=== PATIENT | female | born 1985 | race Caucasian/White ===

== ENCOUNTER 2021-05-26 18:59 | Emergency (ER) | payer OTHER, SELFPAY ==
--- NOTE | 2021-05-26 19:07 | ED.SKABFB ---
HPI - Skin/Abscess/Foreign Bdy General Chief complaint: Skin/Abscess/Foreign Body Stated complaint: Bite on stomach Time Seen by Provider: 05/26/21 19:07 Source: patient and RN notes reviewed History of Present Illness HPI narrative: Patient is a 35-year-old female who presents the urgent care with complaints of an insect bite to the abdomen. Patient states she noticed it on Sunday and it seems to have gotten larger and redness and tingling. Patient states that she has put pressure to the area and has tried covering it with a bandage. Denies of any fever, chills, nausea, vomiting. No other acute complaints. No acute distress noted. Patient aware of the plan of care. Some parts of this dictation were generated by voice recognition software and may contain typographical and/or grammatical inaccuracies. Related Data Allergies Allergy/AdvReac Type Severity Reaction Status Date / Time No Known Allergies Allergy Verified 05/26/21 19:12 Review of Systems Review of Systems: Narrative: CONSTITUTIONAL: Denies fever, chills, or sweats. EYES: Denies visual changes, redness, or discharge. ENT: Denies rhinorrhea, congestion, sore throat, or otalgia. CARDIOVASCULAR: Denies chest pain, palpitations, or edema. RESPIRATORY: Denies cough or dyspnea. GASTROINTESTINAL: Denies abdominal pain, nausea, vomiting, or diarrhea. GENITOURINARY: Denies dysuria or hematuria. SKIN: Reports of an insect bite with surrounding redness to the abdomen MUSCULOSKELETAL: Denies back pain, joint pain, or myalgia. NEUROLOGIC: Denies headache, numbness, or weakness. All other systems reviewed are negative, except as documented in HPI. PMFSH Comments At the time of my signature, I reviewed and agree with the nursing past medical, surgical, social, and family history. There is no relevant family history pertinent to the patient complaint. Exam Narrative: Exam Narrative: GENERAL: This is a well-nourished, well-developed patient, in no apparent distress. HEAD: normocephalic, atraumatic. EYES: PERRL. Sclera clear/white. Vision is grossly intact. EARS: External ears normal NOSE: External nose normal with no obvious nasal discharge, nares without redness, no rhinorrhea. THROAT: Mucous membranes moist NECK: Neck supple CARDIOVASCULAR: Regular rate and rhythm without murmurs, gallops, or rubs. RESPIRATORY: Clear to auscultation. Breath sounds equal bilaterally. No wheezes, rales, or rhonchi. SKIN: 7 x 8 inch region of erythema surrounding a 0.5 cm insect bite to the right abdomen NEURO: awake, alert, and oriented to person, place and time. There were no obvious focal neurologic abnormalities. EXTREMITIES: No clubbing, cyanosis, or edema. N Course Vital Signs Vital signs: Vital Signs Temperature 98.9 F 05/26/21 19:10 Pulse Rate 103 H 05/26/21 19:10 Respiratory Rate 18 05/26/21 19:10 Blood Pressure 139/71 05/26/21 19:10 Pulse Oximetry 98 05/26/21 19:10 Temperature 98.9 F 05/26/21 19:10 Pulse Rate 103 H 05/26/21 19:10 Respiratory Rate 18 05/26/21 19:10 Blood Pressure 139/71 05/26/21 19:10 Pulse Oximetry 98 05/26/21 19:10 Reviewed MDM - Skin/Abscess/Foreign Bdy MDM Narrative Medical decision making narrative: Advised the patient to complete oral antibiotic regimen as prescribed. Be sure to eat and drink with the medication. Use prescription cream to the affected area twice a day as directed. Use a cool washcloth to the abdomen for comfort. Use Tylenol/ibuprofen as needed. Outline the area of redness and if you have an increase in redness associated with fever, nausea, vomiting?go to the emergency room. Keep the wound open to air if it not risk of being soiled and when you are at home. May cover the insect bite while working with a nonocclusive bandage. Follow-up with your PCP within 2 to 5 days or for worsening symptoms or failure to improve. Differential Diagnosis Differential diagnosis: Likely abscess of skin or subcutaneous tissu
[2021-05-26 19:10] VITALS: BP 139/71; PULSE 103; RESP 18; TEMP 37.2; O2SAT 98
== END 2021-05-26 19:30 | disposition home or self-care (01) ==
PROVIDERS: Emergency Provider Nurse Practitioner Family
DX: L03.311 Cellulitis of abdominal wall (principal)
CPT/HCPCS: 99213; G0463

== ENCOUNTER 2022-05-22 11:41 | Emergency (ER) | payer OTHER, SELFPAY ==
--- NOTE | 2022-05-22 11:45 | ED.DENTAL ---
HPI - Dental/Oral General Chief complaint: Dental/Oral Stated complaint: Mouth Swollen Time Seen by Provider: 05/22/22 11:52 Source: patient Mode of arrival: ambulatory Limitations: no limitations History of Present Illness HPI Narrative: 36-year-old female presents with concern for dental pain. Reports she has had a chipped tooth, tooth #9 for quite some time, she reports recently tooth #10 has chipped.. She reports the pain is above tooth #9, below her nose. She reports she has been trying to get into a dentist without luck. She denies trouble swallowing, trouble breathing, fever. MD Complaint: tooth pain Related Data Allergies Allergy/AdvReac Type Severity Reaction Status Date / Time No Known Allergies Allergy Verified 05/26/21 19:12 Review of Systems Review of Systems: CONSTITUTIONAL: Denies malaise, chills, sweats, or fever. EYES: Denies visual changes ENT: Denies rhinorrhea, congestion, sinus pain, otalgia or sore throat. Reports mid frontal dental pain CARDIOVASCULAR: Denies chest pain, palpitations RESPIRATORY: Denies cough or dyspnea. SKIN: Denies rash or itching. MUSCULOSKELETAL: Denies myalgia. NEUROLOGIC: Denies numbness, weakness, or headache. All systems reviewed & are unremarkable except as noted in HPI and below PMFSH Comments At time of signature, agree with nursing past medical, surgical, social and family history. There is no relevant family history pertinent to the presenting complaint Exam Narrative: GENERAL: Well-appearing, well-nourished, and in no acute distress. HEAD: Normocephalic, atraumatic. EYES: PERRLA, sclera clear ENT: Nares clear, turbinates pink, no rhinorrhea or epistaxis. Mucous membranes moist. TM pearly wilkerson with sharp light reflex bilaterally; no tragal tenderness. Oropharynx without erythema or lesions. Tonsils not enlarged and without exudate. Missing teeth, broken teeth, caries. No periapical abscess noted, teeth 7 through 10 broken with caries NECK: Supple. No lymphadenopathy. CHEST: No respiratory distress. Speaks in full sentences. HEART: Regular rate and rhythm. SKIN: Warm, dry, no visible rash. NEURO: Alert and oriented x3. PSYCH: Normal mood and affect Course Course Emergency Course: Patient is aware of diagnosis, understands and agrees to treatment plan. Anticipatory guidance given. Patient agrees to follow-up as directed and is aware of reasons to seek care at the emergency department. Portions of this record may have been created with voice recognition software Level of Care: Express Care Visit Vital Signs Vital signs: Reviewed. MDM - Dental/Oral MDM Narrative Medical decision making narrative: Patients pain and complaint coupled with physical findings are consistant with dentalgia. There are no focal signs of space occupying lesions that are compromising to the airway; no dysphagia, odynophagia, dysphonia, or dyspnea. No uvular deviation or soft palate edema. Patient is non-toxic appearing. The floor of the mouth is soft with no signs of Luis Antonio's Angina; no induration below mandible, no neck pain. Patient is without trismus or drooling and able to swallow secretions. Patient is felt appropriate for discharge home with dental follow up. Differential Diagnosis Differential diagnosis: Likely gingival abscess, dental caries, toothache, dental abscess, fracture of tooth and aphthous ulcer Critical Care Time Critical Care Time Critical Care Time: No Discharge Plan Discharge Clinical Impression: Pain, dental Patient Disposition: Home, Self-Care Condition: Stable Instructions: Antibiotic Form, Toothache (ED) Additional Instructions: Take antibiotic as directed Avoid temperature extremes May apply heat or ice to the face Gentle brushing and flossing Alternate Tylenol and ibuprofen as needed for pain Follow-up with the dentist as soon as possible--see the list provided Prescriptions: New ibuprofen 800 mg tablet 800 mg
[2022-05-22 11:54] VITALS: BP 142/72; PULSE 88; RESP 16; TEMP 37.5; O2SAT 99
== END 2022-05-22 12:04 | disposition home or self-care (01) ==
PROVIDERS: Emergency Provider Nurse Practitioner
DX: K08.89 Other specified disorders of teeth and supporting structures (principal)
CPT/HCPCS: 99213; G0463

== ENCOUNTER 2022-06-21 18:55 | Emergency (ER) | payer OTHER, SELFPAY ==
[2022-06-21 19:03] VITALS: BP 148/75; PULSE 75; RESP 16; TEMP 37; O2SAT 100
--- NOTE | 2022-06-21 19:31 | ED.DENTAL ---
HPI - Dental/Oral General Chief complaint: Dental/Oral Stated complaint: tooth pain Time Seen by Provider: 06/21/22 19:31 Source: patient Mode of arrival: ambulatory History of Present Illness HPI Narrative: 37 y/o female presented for c/o front upper dental pain worsening since yesterday. She was seen and treated for the same complaint in May, symptoms improved, has not seen dentist yet. Reports multiple chipped teeth. Denies drainage, fever, reports minimal swelling. Has not taken anything for pain. MD Complaint: tooth pain Related Data Allergies Allergy/AdvReac Type Severity Reaction Status Date / Time No Known Allergies Allergy Verified 06/21/22 19:32 Review of Systems Review of Systems: CONSTITUTIONAL: Denies body aches, fever, chills ENT: Denies rhinorrhea, congestion, sore throat, or otalgia. Reports dental pain CARDIOVASCULAR: Denies chest pain, palpitations RESPIRATORY: Denies cough or dyspnea. SKIN: Denies rash, itching, or wounds. MUSCULOSKELETAL: Denies myalgia. NEUROLOGIC: Denies headache, numbness, tingling, or weakness. PMFSH Comments At time of signature, I have reviewed and agree with nursing past medical, surgical, social and family history unless otherwise noted. Please see nursing chart for further information. There is no relevant family history pertinent to the presenting complaint Exam Narrative: GENERAL: well-appearing; no acute distress. HEAD: Normocephalic, atraumatic. EYES: EOMI. No redness or drainage. Conjunctivae normal. ENT: Dental pain location of #8-9, teeth are decayed and broken, minimal gum swelling no active drainage; multiple broken teeth, missing teeth. Mucous membranes pink and moist. TMs normal bilaterally. NECK: Normal AROM. No lymphadenopathy or swelling. CHEST: Clear to auscultation. HEART: Regular rate and rhythm. No murmur appreciated. SKIN: Warm, dry, no rash. Normal skin turgor. NEURO: No focal deficits. Alert and oriented x3. Gait steady. Course Course Emergency Course: Patient is aware of diagnosis, understands and agrees to treatment plan. Anticipatory guidance given. Patient agrees to follow-up as directed and is aware of reasons to seek care at the emergency department. Portions of this record may have been created with voice recognition software Level of Care: Express Care Visit Vital Signs Vital signs: Vital Signs Temperature 98.6 F 06/21/22 19:03 Pulse Rate 75 06/21/22 19:03 Respiratory Rate 16 06/21/22 19:03 Blood Pressure 148/75 H 06/21/22 19:03 Pulse Oximetry 100 06/21/22 19:03 Oxygen Delivery Room Air 06/21/22 19:03 Temperature 98.6 F 06/21/22 19:03 Pulse Rate 75 06/21/22 19:03 Respiratory Rate 16 06/21/22 19:03 Blood Pressure 148/75 H 06/21/22 19:03 Pulse Oximetry 100 06/21/22 19:03 Oxygen Delivery Room Air 06/21/22 19:03 MDM - Dental/Oral MDM Narrative Medical decision making narrative: Patients pain and complaint coupled with physical findings are consistent with dentalgia. There are no focal signs of space occupying lesions that are compromising to the airway. Patient is non-toxic appearing. Patient is without trismus or drooling and able to swallow secretions. Advised supportive measures, Patient is appropriate for discharge home with dental follow up. Differential Diagnosis Differential diagnosis: Likely gingival abscess, dental caries, toothache, dental abscess, fracture of tooth and aphthous ulcer Discharge Plan Discharge Clinical Impression: Dentalgia Patient Disposition: Home, Self-Care Condition: Stable Instructions: Antibiotic Form, Toothache (ED) Additional Instructions: Take antibiotic as directed May apply heat or ice to the face Gentle brushing and flossing. Rinse mouth with warm salt water at least 2 times a day. Over the counter Orajel as directed Alternate Tylenol 1000mg and ibuprofen 800mg every 8 hours as needed for pain Follow-up with the denti
== END 2022-06-21 19:50 | disposition home or self-care (01) ==
PROVIDERS: Emergency Provider Nurse Practitioner Family; PCP Nurse Practitioner Family
DX: K08.89 Other specified disorders of teeth and supporting structures (principal)
CPT/HCPCS: 99213; G0463

== ENCOUNTER 2022-07-21 12:37 | Emergency (ER) | payer OTHER, SELFPAY ==
[2022-07-21 12:48] VITALS: BP 135/85; PULSE 65; RESP 18; TEMP 36.9; O2SAT 100
--- NOTE | 2022-07-21 12:52 | ED.EYEPROB ---
HPI - Eye Problem General Chief complaint: Eye Problems Stated complaint: left eye swollen Time Seen by Provider: 07/21/22 12:50 Source: patient Mode of arrival: ambulatory Limitations: no limitations History of Present Illness HPI Narrative: Ms. Brantley is a 37-year-old female patient presenting to the clinic today with complaints of left eye swelling and itching. She also reports having some watery discharge coming from the left eye. States the symptoms started last night. Reports that she is around some dust and may have gotten some dust in her eye. She denies any visual changes or eye pain Related Data Allergies Allergy/AdvReac Type Severity Reaction Status Date / Time No Known Allergies Allergy Verified 07/21/22 12:51 Review of Systems Review of Systems: Pertinent positives per HPI. Patient denies any fever, chills, rash, headache, visual changes, dizziness, cough, runny nose, sore throat, shortness of breath, chest pain, palpitations, nausea, vomiting, diarrhea, constipation, abdominal pain, or any urinary issues. PMFSH Comments At the time of my signature, I reviewed and agree with the nursing past medical, surgical, social, and family history. There is no relevant family history pertinent to the patient complaint. Exam Narrative: General: Well-developed, well nourished, in no apparent distress Head: Normocephalic, atraumatic Eyes: Pupils equally round and reactive to light bilaterally, EOM intact, right sclera and conjunctive clear, left sclera and conjunctive a injected, with watery discharge, right lids normal, left eyelids swollen and nontender Ears: TMs intact and clear, ear canals clear, no drainage, grossly hearing normal. Nose: Nares patent, no discharge, no inflammation, no sinus tenderness. Mouth: Oropharynx without lesions or masses, good dentition, MMM. Neck: Supple, trachea midline, no enlargement of anterior or posterior cervical nodes, no thyroid masses or goiter palpable. Cardio: Regular rate and rhythm, s1 and s2 normal, no murmur appreciated. Resp: Clear to auscultation bilaterally anteriorly and posteriorly, no rhonchi, rales, wheezing or rubs Course Course Emergency Course: Portions of this record may have been created with voice recognition software. Level of Care: Express Care Visit Vital Signs Vital signs: Vital Signs Temperature 36.9 C 07/21/22 12:48 Pulse Rate 65 07/21/22 12:48 Respiratory Rate 18 07/21/22 12:48 Blood Pressure 135/85 07/21/22 12:48 Pulse Oximetry 100 07/21/22 12:48 Oxygen Delivery Room Air 07/21/22 12:48 Temperature 36.9 C 07/21/22 12:48 Pulse Rate 65 07/21/22 12:48 Respiratory Rate 18 07/21/22 12:48 Blood Pressure 135/85 07/21/22 12:48 Pulse Oximetry 100 07/21/22 12:48 Oxygen Delivery Room Air 07/21/22 12:48 Vital signs reviewed MDM - Eye Problem MDM Narrative Medical decision making narrative: At the time of visit patient is resting comfortably on the exam table. She denies any pain in her lifetime. I suspect that she may have an allergic irritation/conjunctivitis to the left eye. I will give her a prescription for some TobraDex to cover a secondary eye infection. Supportive measures were discussed with the patient she voiced understanding and agrees with the treatment plan Differential Diagnosis Differential diagnosis: Likely corneal abrasion, conjunctivitis, periorbital cellulitis, subconjunctival hemorrhage, corneal ulcer and ruptured globe Discharge Plan Discharge Clinical Impression: Acute allergic conjunctivitis of left eye Patient Disposition: Home, Self-Care Condition: Stable Instructions: Antibiotic Form, Conjunctivitis (ED) Additional Instructions: May apply cool compresses to the affected area May take Benadryl 25 to 50 mg every 6 hours as needed for itching/swelling Apply TobraDex eyedrops in the eye as directed May take Tylenol/Motrin as needed for any pain or fever Fol
== END 2022-07-21 12:56 | disposition home or self-care (01) ==
PROVIDERS: Emergency Provider Nurse Practitioner Family; PCP Nurse Practitioner Family
DX: H10.12 Acute atopic conjunctivitis, left eye (principal)
CPT/HCPCS: 99213; G0463

== ENCOUNTER 2023-02-04 16:58 | Emergency (ER) | payer OTHER, SELFPAY ==
[2023-02-04 17:09] VITALS: BP 182/92; PULSE 95; RESP 16; TEMP 36.9; O2SAT 98
--- NOTE | 2023-02-04 17:20 | ED.GENADULT ---
HPI - General Adult General Chief complaint: Upper Respiratory Infection Stated complaint: Congestion/Eye Problem Source: patient Mode of arrival: ambulatory Limitations: no limitations History of Present Illness HPI narrative: Patient presents for evaluation of itching to both eyes and nose. Symptom onset today. She had similar symptoms 6 days ago. She took Claritin and had mild improvement in her symptoms. No fever, chills nausea, vomiting, sore throat, otalgia, thick drainage from the nares, visual disturbance, drainage from the eyes. She has a known history of environmental allergies. No recent sick contacts to her knowledge. She is a former smoker. Related Data Home Medications Medication Instructions Recorded Confirmed norethindrone 1 mg-ethinyl 1 tablet PO DAILY 02/04/23 02/04/23 estradiol 20 mcg (24)-iron 75 mg (4) tablet (Erlinda 24 Fe) Allergies Allergy/AdvReac Type Severity Reaction Status Date / Time No Known Allergies Allergy Verified 02/04/23 17:16 Review of Systems Review of Systems: CONSTITUTIONAL: Denies fever, chills, or sweats. EYES: Reports itching to both eyes. Denies visual changes, redness, or discharge. ENT: Reports itching to the nose with clear rhinorrhea. Denies congestion, sore throat, or otalgia. CARDIOVASCULAR: Denies chest pain, palpitations, or edema. RESPIRATORY: Denies cough or dyspnea. GASTROINTESTINAL: Denies abdominal pain, nausea, vomiting, or diarrhea. GENITOURINARY: Denies dysuria or hematuria. SKIN: Denies rash or itching. MUSCULOSKELETAL: Denies back pain, joint pain, or myalgia. NEUROLOGIC: Denies headache, numbness, dizziness, or weakness. PSYCHIATRIC: Denies anxiety or depression. [facility] Past Medical History Medical History Environmental allergies Surgical History Surgical History No pertinent past surgical history Family History Family History Mother Family history non-contributory Social History Social History Smoking status: Former smoker Substance use: never Living arrangements: with family Gender identity (if verbalized by the patient): Female Sexual Orientation (if Verbalized by the Patient): Straight or Heterosexual Spiritual care concerns: No Exam Narrative: GENERAL: Well-appearing, well-nourished, and in no acute distress. HEAD: Normocephalic, atraumatic. EYES: PERRLA and EOMI. ENT: Clear rhinorrhea present. Mucous membranes moist. Oropharynx without tonsillar hypertrophy exudate or other lesions. Bilateral TMs pearly wilkerson nonbulging NECK: Supple. No adenopathy or masses. No carotid bruits or JVD CHEST: Clear to auscultation. No respiratory distress. No wheezes rales or rhonchi HEART: Regular rate and rhythm. No murmur heard. Normal peripheral pulses. ABDOMEN: Soft, nontender, nondistended, normal active bowel sounds. EXTREMITIES: Normal range of motion. No edema. SKIN: Warm, dry, no rash. NEURO: No focal deficits. Alert and oriented x3. PSYCH: Normal mood and affect. Course Course Emergency Course: This is a 37-year-old female who presented for evaluation of itching to both eyes and nose. Exam is consistent with allergic rhinitis. Will treat with montelukast. Follow up with primary provider. Patient in agreement plan of care. Level of Care: Express Care Visit Vital Signs Vital signs: Vital Signs Temperature 36.9 C 02/04/23 17:09 Pulse Rate 95 02/04/23 17:09 Respiratory Rate 16 02/04/23 17:09 Blood Pressure 182/92 H 02/04/23 17:09 Pulse Oximetry 98 02/04/23 17:09 Oxygen Delivery Room Air 02/04/23 17:09 Temperature 36.9 C 02/04/23 17:09 Pulse Rate 95 02/04/23 17:09 Respiratory Rate 16 02/04/23 17:09 Blood Pressure 182/92 H 02/04/23 17:0
== END 2023-02-04 17:20 | disposition home or self-care (01) ==
PROVIDERS: Emergency Provider Nurse Practitioner; PCP Nurse Practitioner Family
DX: J30.9 Allergic rhinitis, unspecified (principal)
CPT/HCPCS: 99213; G0463

== ENCOUNTER 2023-06-11 17:22 | Emergency (ER) | payer OTHER, SELFPAY ==
[2023-06-11 17:35] VITALS: BP 136/79; PULSE 80; RESP 16; TEMP 36.8; O2SAT 97
--- NOTE | 2023-06-11 17:50 | ED.URI ---
HPI - URI/Sore Throat General Chief Complaint: Upper Respiratory Infection Stated Complaint: Right Eye Problem Time Seen by Provider: 06/11/23 17:50 Source: patient Mode of arrival: ambulatory Limitations: no limitations History of Present Illness HPI Narrative: 38-year-old female presents with complaint of right eye redness, itching, drainage starting today. Reports sinus pressure, congestion, nasal congestion, postnasal drainage for 1 month. Taking Claritin and Zyrtec without relief of her symptoms. Afebrile. All systems reviewed and negative except as noted above. Related Data Home Medications Medication Instructions Recorded Confirmed norethindrone 1 mg-ethinyl 1 tablet PO DAILY 02/04/23 02/04/23 estradiol 20 mcg (24)-iron 75 mg (4) tablet (Erlinda 24 Fe) lisinopril 10 tablet 06/11/23 mg-hydrochlorothiazide 12.5 mg tablet Allergies Allergy/AdvReac Type Severity Reaction Status Date / Time No Known Allergies Allergy Verified 02/04/23 17:16 Review of Systems Review of Systems: CONSTITUTIONAL: Denies fever, chills, or sweats. EYES: Denies visual changes reports right eye redness, itching, discharge. ENT: Reports rhinorrhea, congestion, sinus pressure. Denies sore throat, or otalgia. CARDIOVASCULAR: Denies chest pain, palpitations, or edema. RESPIRATORY: Denies cough or dyspnea. GASTROINTESTINAL: Denies abdominal pain, nausea, vomiting, or diarrhea. GENITOURINARY: Denies dysuria or hematuria. SKIN: Denies rash or itching. MUSCULOSKELETAL: Denies back pain, joint pain, or myalgia. NEUROLOGIC: Denies headache, numbness, or weakness. PSYCHIATRIC: Denies anxiety or depression. All other systems reviewed are negative, except as documented in HPI. [facility] Past Medical History Medical History (Updated 06/11/23 @ 17:56 by Kamille Connell NP) Environmental allergies Surgical History Surgical History No pertinent past surgical history Family History Family History Mother Family history non-contributory Social History Social History Smoking status: Former smoker Substance use: never Living arrangements: with family Gender identity (if verbalized by the patient): Female Sexual Orientation (if Verbalized by the Patient): Straight or Heterosexual Spiritual care concerns: No Comments At time of signature, agree with nursing past medical, surgical, social and family history. There is no relevant family history pertinent to the presenting complaint. Exam Narrative: GENERAL: This is a well-nourished, well-developed patient, in no apparent distress. HEAD: normocephalic, atraumatic. EYES: PERRL. Erythema to right sclera and conjunctiva. Purulence drainage. Vision is grossly intact. EARS: External ears normal, auditory canals clear and without drainage, opaque color to bilateral TMs with dull light reflex. No perforation bilaterally. NOSE: External nose normal with purulence nasal drainage with erythema and swelling to bilateral nares. Bilateral maxillary and frontal sinus tenderness. THROAT: Mucous membranes moist, erythema and swelling to posterior pharynx with postnasal drainage. NECK: Neck supple, non-tender without lymphadenopathy, masses or thyromegaly. CARDIOVASCULAR: Regular rate and rhythm without murmurs, gallops, or rubs. RESPIRATORY: Clear to auscultation. Breath sounds equal bilaterally. No wheezes, rales, or rhonchi. SKIN: warm, Dry, intact with no suspicious lesions or rash, good texture and turgor. NEURO: awake, alert, and oriented to person, place and time. There were no obvious focal neurologic abnormalities. EXTREMITIES: No joint tenderness, effusion, or edema noted. Course Course Level of Care: Express Care Visit Vital Signs Vital signs: Vital Signs Temperature 3
== END 2023-06-11 18:03 | disposition home or self-care (01) ==
PROVIDERS: Emergency Provider Nurse Practitioner Family; PCP Nurse Practitioner Family
DX: J01.90 Acute sinusitis, unspecified (principal); H10.31 Unspecified acute conjunctivitis, right eye; Z87.891 Personal history of nicotine dependence
CPT/HCPCS: 99213; G0463

== ENCOUNTER 2023-07-09 12:29 | Emergency (ER) | payer OTHER, SELFPAY ==
[2023-07-09 12:39] VITALS: BP 137/78; PULSE 98; RESP 18; TEMP 37.3; O2SAT 98
--- NOTE | 2023-07-09 13:05 | ED.URI ---
HPI - URI/Sore Throat General Chief Complaint: Upper Respiratory Infection Stated Complaint: Bodyache/Congestion/Sore Throat Time Seen by Provider: 07/09/23 13:05 Source: patient Mode of arrival: ambulatory Limitations: no limitations History of Present Illness HPI Narrative: 38-year-old female presents with complaint of sinus congestion, postnasal drainage, sore throat starting last night. Patient states she started Zyrtec this morning and no change the symptoms. Afebrile. Patient was on antibiotic June 12 for sinusitis. States that all symptoms had resolved. All systems reviewed and negative except as noted above. Related Data Home Medications Medication Instructions Recorded Confirmed norethindrone 1 mg-ethinyl 1 tablet PO DAILY 02/04/23 07/09/23 estradiol 20 mcg (24)-iron 75 mg (4) tablet (Erlinda 24 Fe) Allergies Allergy/AdvReac Type Severity Reaction Status Date / Time No Known Allergies Allergy Verified 07/09/23 13:03 Review of Systems Review of Systems: CONSTITUTIONAL: Denies fever, chills, or sweats. EYES: Denies visual changes, redness, or discharge. ENT: Reports rhinorrhea, congestion, sore throat. Denies otalgia. CARDIOVASCULAR: Denies chest pain, palpitations, or edema. RESPIRATORY: Denies cough or dyspnea. GASTROINTESTINAL: Denies abdominal pain, nausea, vomiting, or diarrhea. GENITOURINARY: Denies dysuria or hematuria. SKIN: Denies rash or itching. MUSCULOSKELETAL: Denies back pain, joint pain, or myalgia. NEUROLOGIC: Denies headache, numbness, or weakness. PSYCHIATRIC: Denies anxiety or depression. All other systems reviewed are negative, except as documented in HPI. [facility] Past Medical History Medical History (Updated 07/09/23 @ 13:15 by Kamille Connell NP) Environmental allergies Surgical History Surgical History No pertinent past surgical history Family History Family History Mother Family history non-contributory Social History Social History Smoking status: Former smoker Substance use: never Living arrangements: with family Gender identity (if verbalized by the patient): Female Sexual Orientation (if Verbalized by the Patient): Straight or Heterosexual Spiritual care concerns: No Comments At time of signature, agree with nursing past medical, surgical, social and family history. There is no relevant family history pertinent to the presenting complaint. Exam Narrative: GENERAL: This is a well-nourished, well-developed patient, in no apparent distress. HEAD: normocephalic, atraumatic. EYES: PERRL. Sclera clear/white. Vision is grossly intact. EARS: External ears normal, auditory canals clear and without drainage, TMs normal without perforation. Hearing grossly intact. NOSE: External nose normal with moderate congestion, clear nasal drainage, nares without redness or swelling. THROAT: Mucous membranes moist, clear postnasal drainage without erythema.. NECK: Neck supple, non-tender without lymphadenopathy, masses or thyromegaly. CARDIOVASCULAR: Regular rate and rhythm without murmurs, gallops, or rubs. RESPIRATORY: Clear to auscultation. Breath sounds equal bilaterally. No wheezes, rales, or rhonchi. SKIN: warm, Dry, intact with no suspicious lesions or rash, good texture and turgor. NEURO: awake, alert, and oriented to person, place and time. There were no obvious focal neurologic abnormalities. EXTREMITIES: No joint tenderness, effusion, or edema noted. Course Course Level of Care: Express Care Visit Vital Signs Vital signs: Vital Signs Temperature 37.3 C 07/09/23 12:39 Pulse Rate 98 07/09/23 12:39 Respiratory Rate 18 07/09/23 12:39 Blood Pressure 137/78 07/09/23 12:39 Pulse Oximetry 98 07/09/23 12:39 Oxygen Delivery Room Air
== END 2023-07-09 13:19 | disposition home or self-care (01) ==
PROVIDERS: Emergency Provider Nurse Practitioner Family; PCP Nurse Practitioner Family
DX: J01.90 Acute sinusitis, unspecified (principal); Z87.891 Personal history of nicotine dependence
CPT/HCPCS: 87081; 87880; 99213; G0463

== ENCOUNTER 2023-07-24 18:55 | Emergency (ER) | payer OTHER, SELFPAY ==
--- NOTE | 2023-07-24 19:02 | ED.EYEPROB ---
HPI - Eye Problem General Chief complaint: Eye Problems Stated complaint: eyes Source: patient and RN notes reviewed Mode of arrival: ambulatory Limitations: no limitations History of Present Illness HPI Narrative: Patient is a 38-year-old female who presents to the [facility] with bilateral eye tearing and itching that started this morning. Patient states that her neighbors motor grass yesterday and she woke up with the tearing and irritation. She denies any purulence drainage from the eyes. There is slight injection noted. She denies recent fevers. Patient states that she took a Zyrtec this morning without much relief. Related Data Home Medications Medication Instructions Recorded Confirmed norethindrone 1 mg-ethinyl 1 tablet PO DAILY 02/04/23 07/09/23 estradiol 20 mcg (24)-iron 75 mg (4) tablet (Erlinda 24 Fe) lisinopril 10 tablet 07/24/23 mg-hydrochlorothiazide 12.5 mg tablet Allergies Allergy/AdvReac Type Severity Reaction Status Date / Time No Known Allergies Allergy Verified 07/09/23 13:03 Review of Systems Review of Systems: CONSTITUTIONAL: Denies fever, chills, or sweats. EYES: Denies visual changes. Reports bilateral eye itching and tearing. ENT: Denies otalgia and sore throat CARDIOVASCULAR: Denies chest pain, palpitations, or edema. RESPIRATORY: Denies cough or dyspnea. GASTROINTESTINAL: Denies abdominal pain, nausea, vomiting, or diarrhea. GENITOURINARY: Denies dysuria or hematuria. SKIN: Denies rash or itching. MUSCULOSKELETAL: Denies back pain, joint pain, or myalgia. NEUROLOGIC: Denies headache, numbness, or weakness. Pertinent positives per HPI. [facility] Past Medical History Medical History Environmental allergies Surgical History Surgical History No pertinent past surgical history Family History Family History Mother Family history non-contributory Social History Social History Smoking status: Former smoker Substance use: never Living arrangements: with family Gender identity (if verbalized by the patient): Female Sexual Orientation (if Verbalized by the Patient): Straight or Heterosexual Spiritual care concerns: No Comments At the time of my signature, I reviewed and agree with the nursing past medical, surgical, social, and family history. There is no relevant family history pertinent to the patient complaint. Exam Narrative: GENERAL: This is a well-nourished, well-developed patient, in no apparent distress. HEAD: normocephalic, atraumatic. EYES: PERRL. Sclera slightly injected. No purulent drainage. Some tearing noted. Vision is grossly intact. EARS: External ears normal, auditory canals clear and without drainage, TMs normal without perforation. Hearing grossly intact. NOSE: External nose normal with no obvious nasal discharge, nares without redness, no rhinorrhea. THROAT: Mucous membranes moist, posterior pharynx clear. NECK: Neck supple, non-tender without lymphadenopathy, masses or thyromegaly. CARDIOVASCULAR: Regular rate and rhythm without murmurs, gallops, or rubs. RESPIRATORY: Clear to auscultation. Breath sounds equal bilaterally. No wheezes, rales, or rhonchi. GASTROINTESTINAL: Abdomen soft, non-tender, nondistended. Bowel sounds are active. No hepato-splenomegaly, or palpable masses. No guarding. SKIN: warm, intact with no suspicious lesions or rash, good texture and turgor. NEURO: awake, alert, and oriented to person, place and time. There were no obvious focal neurologic abnormalities. Course Course Level of Care: Express Care Visit Vital Signs Vital signs: Vital Signs Temperature 97.5 F L 07/24/23 19:07 Pulse Rate 76 07/24/23 19:07 Respiratory Rate 16 07/24/23 19:07 Blood Pressure 127/82
[2023-07-24 19:07] VITALS: BP 127/82; PULSE 76; RESP 16; TEMP 36.4; O2SAT 98
== END 2023-07-24 19:15 | disposition home or self-care (01) ==
PROVIDERS: Emergency Provider Nurse Practitioner; PCP Nurse Practitioner Family
DX: H10.13 Acute atopic conjunctivitis, bilateral (principal); Z87.891 Personal history of nicotine dependence
CPT/HCPCS: 99213; G0463

== ENCOUNTER 2023-09-15 10:38 | Emergency (ER) | payer OTHER, SELFPAY ==
[2023-09-15 10:49] VITALS: BP 157/80; PULSE 105; RESP 20; TEMP 36.6; O2SAT 97
--- NOTE | 2023-09-15 11:02 | ED.URI ---
HPI - URI/Sore Throat General Chief Complaint: Upper Respiratory Infection Stated Complaint: Shortness of Breath History of Present Illness HPI Narrative: Patient presents with a history of asthma states she feels as if she needs her inhaler. Patient has not had an inhaler for some time. Patient states she [facility] and had a positive test but denies any -related problems at this time. Patient has an appoint with her OB mixing machine feeder on October for routine visit. No fever no cough. Related Data Allergies Allergy/AdvReac Type Severity Reaction Status Date / Time No Known Allergies Allergy Verified 07/09/23 13:03 Review of Systems Review of Systems: CONSTITUTIONAL: Denies chills, or sweats. Reports fever and generalized body aches EYES: Denies visual changes, redness, or discharge. ENT: Denies otalgia. Reports nasal congestion runny nose and sore throat CARDIOVASCULAR: Denies chest pain, palpitations, or edema. RESPIRATORY: Denies dyspnea. Reports occasional cough GASTROINTESTINAL: Denies abdominal pain, nausea, vomiting, or diarrhea. GENITOURINARY: Denies dysuria or hematuria. SKIN: Denies rash or itching. MUSCULOSKELETAL: Denies back pain, joint pain, or myalgia. Reports generalized body aches NEUROLOGIC: Denies headache, numbness, or weakness. PSYCHIATRIC: Denies anxiety or depression. PMFSH Past Medical History Medical History Environmental allergies Surgical History Surgical History No pertinent past surgical history Family History Family History Mother Family history non-contributory Social History Social History Smoking status: Former smoker Substance use: never Living arrangements: with family Gender identity (if verbalized by the patient): Female Sexual Orientation (if Verbalized by the Patient): Straight or Heterosexual Spiritual care concerns: No Comments At time of signature, agree with nursing past medical, surgical, social and family history. There is no relevant family history pertinent to the presenting complaint Exam Narrative: The patient is a well-developed, well-nourished in no acute distress. SKIN: Skin is warm and dry without erythema, swelling or exudate. There is good turgor. No tenting. HEAD: Atraumatic. Normocephalic. No temporal or scalp tenderness. EYES: Moist and bright. Sclera and conjunctivae normal. No discharge. PERRLA. Extraocular motions intact. Gross visual acuity intact. EARS: Pinna is normal shape and contour. Clear external auditory canals. TM pearly mcclain with good cone of light, no erythema or suppuration. Bilateral cerumen noted no gross hearing deficit. NOSE: pink, moist mucosa with good air movement. Clear rhinorrhea without nasal flaring. Septum midline. Mouth: moist mucous membranes. THROAT; mild erythema noted to posterior oropharynx with moderate postnasal drainage. Without exudate or ulceration.. Uvula midline. Normal movement of soft palate. NECK: Supple and nontender with full range of motion without discomfort. No meningeal signs. LUNGS: Equal and bilateral breath sounds without wheezes, rales or rhonchi. Few scattered expiratory wheezes CHEST: The chest wall is without retractions or use of accessory muscles. HEART: Has a regular rate and rhythm without murmur, gallops, click or rub. ABDOMEN: Soft, nontender with positive active bowel sounds. No rebound tenderness. EXTREMITIES: Without cyanosis, clubbing or edema. Equal 2+ distal pulses and 2 second capillary refill noted. NEUROLOGIC: alert, active, . The patient moves all extremities with normal muscle strength. Normal muscle tone is noted. Normal coordination is noted. NO focal neurological findings noted. Course Course Level
== END 2023-09-15 11:11 | disposition home or self-care (01) ==
PROVIDERS: Emergency Provider Nurse Practitioner Family; PCP Nurse Practitioner Family
DX: J06.9 Acute upper respiratory infection, unspecified (principal); J45.909 Unspecified asthma, uncomplicated; Z87.891 Personal history of nicotine dependence
CPT/HCPCS: 99213; G0463

== ENCOUNTER 2024-03-24 12:27 | Emergency (ER) | payer OTHER, SELFPAY ==
[2024-03-24 12:30] VITALS: BP 151/83; PULSE 107; RESP 20; TEMP 36.4; O2SAT 97
--- NOTE | 2024-03-24 13:35 | ED.EYEPROB ---
HPI - Eye Problem General Chief complaint: Eye Problems Stated complaint: Congestion/Right Eye Problem Time Seen by Provider: 03/24/24 13:35 Source: patient, RN notes reviewed and old records reviewed Mode of arrival: ambulatory Limitations: no limitations History of Present Illness HPI Narrative: 38-year-old female to [facility] with complaint of nasal congestion, nonproductive cough and right eye irritation since yesterday. Patient is 37 weeks . Patient denies visual changes, fever, chest pain, shortness of breath, allergies, GI complaints. Patient sitting comfortably in exam room, respirations even and nonlabored. No signs of distress. Patient able to tolerate fluids by mouth. Related Data Home Medications Medication Instructions Recorded Confirmed labetalol 100 mg tablet 100 mg PO BID 03/24/24 03/24/24 Allergies Allergy/AdvReac Type Severity Reaction Status Date / Time No Known Allergies Allergy Verified 03/24/24 12:42 Review of Systems Review of Systems: All systems reviewed & are unremarkable except as noted in HPI and below Constitutional: Constitutional: Reports as per HPI and Denies fever(s) Eyes: Eyes: Reports as per HPI, Denies change in vision, Reports eye discharge, Reports irritation and Denies photophobia ENT: Reports as per HPI and Reports nasal congestion Cardiovascular: Cardiovascular: Reports no additional cardiovascular complaints, Denies chest pain and Denies dyspnea Respiratory: Respiratory: Reports no additional respiratory complaints, Reports cough and Denies dyspnea Musculoskeletal: Musculoskeletal: Reports no additional musculoskeletal complaints Neurologic: Reports system reviewed and no additional complaints, except as documented Psychiatric: Psychiatric: Reports no additional psychiatric complaints PMFSH Past Medical History Medical History Environmental allergies Surgical History Surgical History No pertinent past surgical history Family History Family History Mother Family history non-contributory Social History Social History Smoking status: Former smoker Substance use: never Living arrangements: with family Gender identity (if verbalized by the patient): Female Sexual Orientation (if Verbalized by the Patient): Straight or Heterosexual Spiritual care concerns: No Comments At the time of my signature, I reviewed and agree with the nursing past medical, surgical, social, and family history. There is no relevant family history pertinent to the patient complaint. Exam Const: General: cooperative, healthy appearing, no acute distress, alert, uncomfortable and well nourished Nutritional Appearance: well nourished Orientation/consciousness: patient oriented x3 Limitations: no limitations HENMT: Head: normal to inspection Ears: external ears normal Face/Nose/Sinus: Normal external nose present, Normal nares present, normal facial exam, No erythema and No edema Face and sinus: normal facial exam, no erythema and no edema Mouth: Yes Normal oral and palatal mucosa present Throat: posterior oropharynx abnormal erythema and postnasal drainage Eyes: Visual Santana: normal visual santana by confrontation Alignment and Position: alignment normal and position normal Periorbital: periorbital findings normal Eyelids: eyelids normal Conjunctivae: conjunctival abnormality right conjunctival injection diffuse and discharge mucoid Sclera: scleral abnormality right scleral injection diffuse Pupils: Equal, round and reactive pupils present Neck: Neck: normal visual inspection, full ROM and no meningeal signs Lymphatic: no lymphadenopathy noted and no lymphedema noted Chest: Chest palpation & inspection: normal inspe
== END 2024-03-24 13:56 | disposition home or self-care (01) ==
PROVIDERS: Emergency Provider Nurse Practitioner Family; PCP Nurse Practitioner Family
DX: O99.891 Other specified diseases and conditions complicating pregnancy (principal); Z3A.37 37 weeks gestation of pregnancy; H10.9 Unspecified conjunctivitis; O99.513 Diseases of the respiratory system complicating pregnancy, third trimester; J30.2 Other seasonal allergic rhinitis; Z87.891 Personal history of nicotine dependence
CPT/HCPCS: 99213; G0463

== ENCOUNTER 2024-07-31 11:08 | Emergency (ER) | payer OTHER, SELFPAY ==
[2024-07-31 11:12] VITALS: BP 139/59; PULSE 87; RESP 20; TEMP 36.6; O2SAT 95
--- NOTE | 2024-07-31 11:20 | ED.EYEPROB ---
HPI - Eye Problem General Chief complaint: Eye Problems Stated complaint: right eye Time Seen by Provider: 07/31/24 11:20 Source: patient Mode of arrival: ambulatory Limitations: no limitations History of Present Illness HPI Narrative: 39 yo F presents with c/o R eye itching, burning, drainage,swelling. Noticed symptoms this Am. Drove with windows open yesterday and then slept with windows open. thinks allergies causing symptoms. No vision change. came here before and got drops that helped . all systems reviewed and negative except as noted above. Related Data Home Medications Medication Instructions Recorded Confirmed lisinopril 20 1 tablet PO DAILY 07/31/24 07/31/24 mg-hydrochlorothiazide 25 mg tablet Allergies Allergy/AdvReac Type Severity Reaction Status Date / Time No Known Allergies Allergy Verified 03/24/24 12:42 Review of Systems Review of Systems: CONSTITUTIONAL: Denies fever, chills, or sweats. EYES: Denies visual changes . Reports right eye redness, itching, discharge. ENT: Denies rhinorrhea, congestion, sore throat, or otalgia. CARDIOVASCULAR: Denies chest pain, palpitations, or edema. RESPIRATORY: Denies cough or dyspnea. GASTROINTESTINAL: Denies abdominal pain, nausea, vomiting, or diarrhea. GENITOURINARY: Denies dysuria or hematuria. SKIN: Denies rash or itching. MUSCULOSKELETAL: Denies back pain, joint pain, or myalgia. NEUROLOGIC: Denies headache, numbness, or weakness. PSYCHIATRIC: Denies anxiety or depression. All other systems reviewed are negative, except as documented in HPI. [facility] Past Medical History Medical History Environmental allergies Surgical History Surgical History No pertinent past surgical history Family History Family History Mother Family history non-contributory Social History Social History Smoking status: Former smoker Substance use: never Living arrangements: with family Gender identity (if verbalized by the patient): Female Sexual Orientation (if Verbalized by the Patient): Straight or Heterosexual Spiritual care concerns: No Comments At time of signature, agree with nursing past medical, surgical, social and family history. There is no relevant family history pertinent to the presenting complaint. Exam Narrative: GENERAL: This is a well-nourished, well-developed patient, in no apparent distress. HEAD: normocephalic, atraumatic. EYES: PERRL. sclera and the right eye erythematous. Surrounding soft tissue swelling. Thick clear drainage. Left eye normal appearing EARS: External ears normal NOSE: External nose normal NECK: Neck supple, non-tender without lymphadenopathy, masses or thyromegaly. CARDIOVASCULAR: Regular rate and rhythm without murmurs, gallops, or rubs. RESPIRATORY: Clear to auscultation. Breath sounds equal bilaterally. No wheezes, rales, or rhonchi. SKIN: warm, Dry, intact with no suspicious lesions or rash, good texture and turgor. NEURO: awake, alert, and oriented to person, place and time. There were no obvious focal neurologic abnormalities. EXTREMITIES: No joint tenderness, effusion, or edema noted. Course Course Level of Care: Express Care Visit Vital Signs Vital signs: Vital Signs Temperature 36.6 C 07/31/24 11:12 Pulse Rate 87 07/31/24 11:12 Respiratory Rate 07/31/24 11:12 Blood Pressure 139/59 L 07/31/24 11:12 Pulse Oximetry 95 07/31/24 11:12 Oxygen Delivery Room Air 07/31/24 11:12 Temperature 36.6 C 07/31/24 11:12 Pulse Rate 87 07/31/24 11:12 Respiratory Rate 20 07/31/24 11:12 Blood Pressure 139/59 L 07/31/24 11:12 Pulse Oximetry 95 07/31/24 11:12 Oxygen Delivery Room Air 07/31/24 11:12 review
== END 2024-07-31 11:43 | disposition home or self-care (01) ==
PROVIDERS: Emergency Provider Nurse Practitioner Family; PCP Nurse Practitioner Family
DX: H10.31 Unspecified acute conjunctivitis, right eye (principal); Z87.891 Personal history of nicotine dependence
CPT/HCPCS: 99213; G0463

== ENCOUNTER 2025-06-24 16:17 | Emergency (ER) | payer OTHER, SELFPAY ==
[2025-06-24 16:21] VITALS: BP 148/88; PULSE 86; RESP 20; TEMP 36.4; O2SAT 98
--- OUTSIDE RECORDS SUMMARY | 2025-06-24 16:22 | XMS_ITS | Encounter Summary ---
Author Organization [facility] Address [address] [facility] [address] [place] [address] Phone Care Team Providers Care Floorleader Name Role Phone Go Maurer MD Unavailable [phone] Shari Ba NP Primary Care Provider [phone] Reason for Visit * Reason Onset Date Comments Prior Auth 06/24/2025 ipratropium (ATR OVENT) 21 mcg (0.03 %) nasal spray Encounter Details Date Type Department Care Team (Late st Contact Info) Description 06/24/2025 Telephone [facility] Medicine Scheduling [facility] [place] [address] Harika Upton MD [address] [facility] [address] [place] [address] Prior Auth (ipratropium (ATROVENT) 21 mcg (0.03 %) nasal spray) Social History Tobacco Use Types Packs/Day Years Used Date Smoking Tobacco: Former Cigarettes 0.8 22.7 1 999 - 08/2021 Smokeless Tobacco: Never Comments:asked if pt ready t o quit, answer was a very weak yeah Alcohol Use Standard Drinks/Week Comments Not Currently 0 (1 standard drink = 0.6 oz pur e alcohol) Social Connection and Isolation Panel Answer Date Recorded In a typical week, how many times do you talk on the phone with family, friends, or neighbors? More than three times a week 03/28/2024 How often do you get togethe r with friends or relatives? More than three times a week 03/28/2024 How often do you attend chur ch or episcopalian services? 1 to 4 times per year 03/28/2024 Do you belong to any clubs o r organizations such as advent groups, unions, fraternal or athletic groups, or school groups? Patient declined 03/28/2024 How often do you attend meet ings of the clubs or organizations you belong to? More than 4 times per year 03/28/2024 Are you , , di vorced, , never , or living with a partner? 03/28/2024 Overall Financial Resource Strain (CARDIA) Answe r Date Recorded How hard is it for you to pa y for the very basics like food, housing, medical care, and heating? Not very hard 03/28/2024 PHQ-2 Answer Date Recorded PHQ-2 Total Score (If total score is 3 or more points, staff should administer the PHQ-9) 2 03/25/2025 [facility] - Occupational Stress Questionnaire Answer Date Recorded Do you feel stress - tense, restless, nervous, or anxious, or unable to sleep at night because your mind is troubled all the time - these days? Not at all 03/28/2024 Exercise Vital Sign Answer Date Recorde d On average, how many days pe r week do you engage in moderate to strenuous exercise (like a brisk walk)? 0 days 04/03/2024 On average, how many minutes do you engage in exercise at this level? 0 min 04/03/2024 Hunger Vital Sign Answer Date Recorded Within the past 12 months, y ou worried that your food would run out before you got the money to buy more. Never true 03/28/20 24 Within the past 12 months, t he food you bought just didn't last and you didn't have money to get more. Never true 03/28/2024 PRAPARE - Transportation Answer Date Re corded In the past 12 months, has l ack of transportation kept you from medical appointments or from getting medications? No 03/06 In the past 12 months, has l ack of transportation kept you from meetings, work, or from getting things needed for daily living? No 03/28/2024 Housing Stability Vital Sign Answer Skip e Recorded In the last 12 months, was t here a time when you were not able to pay the mortgage or rent on time? No 03/28/2024 In the past 12 months, how m any times have you moved where you were living? 1 03/28/2024 At any time in the past 12 m [facility], were you homeless or living in a [facility] (including now)? No 03/28/2024 AUDIT-C Answer Date Recorded Q1: How often do you have a drink containing alcohol? Never 06/17/2025 Q2: How many drinks containi ng alcohol do you have on a typical day when you are drinking? Patient does not drink Q3: How often do you have si x or more drinks on one occasion? Never 06/17/2025 Personal Safety Answer Date Recorded Have you ever been in or are you currently in a harmful physical or emotional relationship or is someone making you feel afraid or unsafe? 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 Gender Identity Not on file Sexual Orientation Not on file documented as of this encounter Miscellaneous Notes * Telephone Encounter - Karin Benson - 06/24/2025 3:16 PM CDT Manjarrez: [id number] ipratropium (ATROVENT) 21 mcg (0.03 %) nasal spray Status: pending PA [facility] documented in this encounter Plan of Treatment Not on file documented as of this encounter Visit Diagnoses Not on filedocumented in this encounter Care Teams Floorleader Relationship Specialty Start Date End Date Shari Ba NP [id number] [address] PCP - General Family Medicine 04/15/25 Go Maurer MD Consulting Physician Cardiovascular Disease 08/27/21 documented as of this encounter
--- OUTSIDE RECORDS SUMMARY | 2025-06-24 16:22 | XMS_ITS | Encounter Summary ---
Author Organization [facility] Healthcare Address [address] [place] [address] Care Team Providers Care Stock Control Clerk Name Role Phone Go Maurer MD Unavailable [phone] Shari Ba NP Primary Care Provider [phone] Reason for Visit * Reason Onset Date Comments Medication Request 06/19/2025 Encounter Details Date Type Department Care Team (Late st Contact Info) Description 06/19/2025 Telephone [facility] Medical Group Primary Care at [address] [address] Shari Ba NP [address] [place] [address] [address] [place] [address] Medication Request Social History Tobacco Use Types Packs/Day Years Used Date Smoking Tobacco: Former Cigarettes 0.8 22.7 1 - 08/2021 Smokeless Tobacco: Never Comments:asked if [...] week 03/28/2024 How often do you attend [facility] or latter day services? 1 to 4 times per year 03/28/2024 Do you belong to any clubs o r organizations such as moravian groups, unions, fraternal or athletic groups, or [...] staff should administer the PHQ-9) 2 03/25/2025 [facility] - Occupational Stress Questionnaire Answer Date Recorded [...] any time in the past [address] [facility], were you homeless or living in a half-way (including now)? 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 Can you call her if anything is needed for approval She did the the ladderman, given different. nasal spray Does message need to be routed? Yes-Action Needed * Telephone Encounter - Fatimah Graf MA - 06/19/2025 10:40 AM CDT Received a Cover my meds request. After reading messages patient needs another A1C and we were going to try it again in 3 months. Let me know if agreeable or if would like another dx code for Trulicity. documented in this encounter Plan of Treatment Not on file documented as of this encounter Visit Diagnoses Not on filedocumented in this encounter Care Teams Stock Control Clerk Relationship Specialty Start Date End Date Shari Ba NP [address] [address] PCP - General Family Medicine 04/15/25 Go Maurer MD Consulting Physician Cardiovascular Disease 08/27/21 documented as of this encounter
--- OUTSIDE RECORDS SUMMARY | 2025-06-24 16:22 | XMS_ITS | Clinical Summary ---
Author Organization [facility] Address [facility] [address] [place] [address] Care Team Providers Care Care Specialist Name Role Phone Shari Ba Zeke [place], BANKING ATTORNEY Primary Care Provider Provider, Unknown Unavailable Unavailable Allergies No known active allergies Medications diclofenac (VOLTAREN) 50 MG Tablet Delayed Response Take 1 Tablet by mouth 3 times daily. 90 Tablet 03/03/2021 Active ibuprofen (MOTRIN) 600 MG Tablet Take 1 Tablet by mouth every 8 hours as needed for Moderate or more severe pain or Fever. 60 Tablet 08/21/2021 Active Family History Medical History Relation Name Comments Cancer Father Cancer Maternal Grandfather Breast Cancer Maternal Grandmother Cancer Maternal Grandmother Diabetes Mother Hypertension Mother Relation Name Status Comments Father Maternal Grandfather Maternal Grandmother Mother Social History Tobacco Use Types Packs/Day Years Used Date Smoking Tobacco: Every Day Cigarettes Last attempted to quit: 11/01/2015 Smokeless Tobacco: Never Alcohol Use Standard Drinks/Week Comments No 0 (1 standard drink = 0.6 oz pur e alcohol) Sexually Active Control Partners Comments Yes Male Comments No Sex and Gender Information Value Date Recorded Sex Assigned at Not on file 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 Gender Identity Not on file Sexual Orientation Not on file Last Filed Vital Signs Vital Sign Reading Time Taken Comments Blood Pressure 116/72 08/21/2021 2:15 PM CDT Pulse 90 08/21/2021 2:30 PM CDT Temperature 38.2 C (100.7 F) 08/21/2021 2:05 PM CDT Respiratory Rate 17 08/21/2021 2:30 PM CDT Oxygen Saturation 98% 08/21/2021 2:30 PM CDT Inhaled Oxygen Concentration - - Weight 113.4 kg (250 lb) 08/21/2021 12:19 PM CDT Height 165.1 cm (5' 5) 08/21/2021 12:19 PM CDT Body Mass Index 41.6 08/21/2021 12:19 PM CDT Plan of Treatment Health Maintenance Due Date Last Done Comments Hepatitis C Virus (HCV) Screening 1983 Mammogram 1983 Hepatitis B Immunization (1 of 3 - 19+ 3-dose series) 2002 Pap Smear 2004 Human Papillomavirus (HPV) Immunization (1 - 3-dose SCDM series) 2010 Cervical Cancer Screening (CCS) 2013 HPV/Cotest 2013 Discussion re Starting/Frequency of Mammograms 2023 SARS-COV-2 Immunization ( - 2023- season) 2024 12/08/2020, 11/19/2020 Influenza Immunization (#1) 07/06/202511/05, 07/27/2015 Respiratory Syncytial Virus (RSV) Immunization (Adult) (1 - 1-dose 75+ series) 2058 DTaP/Tdap/Td Immunization Discontinued 03/23/2022 TdaP Immunization Completed 03/23/2022 Meningococcal Immunization (ACWY) Aged Out No longer eligible based on patient's age to complete this topic Pneumococcal Immunization Combined Aged Out No longer eligible based on patient's age to complete this topic Rotavirus Immunization Aged Out No lo nger eligible based on patient's age to complete this topic Insurance [place] Advance Directives * Full Code (Latest Code Status on File) Date Activated Date Inactivated Comments 06/01/2016 6:33 PM 06/02/2016 4:22 PM CPR-Full Olaf atment: FULL ARREST: Attempt Resuscitation/CPR wit intubation and mechanical ventilation. PRE-ARREST: Use entire range of life support measures to stabilize the patient. Care Teams Care Specialist Relationship Specialty Start Date End Date Shari Ba APRN, BANKING ATTORNEY [address] [place] [address] [address] [place] [id number] PCP - General Advanced Practice Nurse 10/03/23 Provider, Unknown UNKNOWN 10/03/23
--- OUTSIDE RECORDS SUMMARY | 2025-06-24 16:22 | XMS_ITS | Clinical Summary ---
Author Organization [facility] Address [address] [place] [address] Care Team Providers Care Accounts Receivable Processor Name Role Phone Go Maurer MD Unavailable [phone] Shari Ba NP Primary Care Provider [phone] Allergies No known active allergies Medications ibuprofen (ADVIL,MOTRIN) 600 mg tabletIndicati ons:Pain Take 1 tablet (600 mg total) by mouth every 6 (six) hours as needed for pain 30 tablet 1 09/25/20 24 Active Additional Information Patient not taking.Reported on 06/17/2025 lidocaine (LIDODERM) 5 % Place 1 patch on the skin daily for 12 hours for 14 days Remove & discard patch within 12 hours or as directed by . 14 patch 02/08/20 25 Active Additional Information Patient not taking.Reported on 06/17/2025 naproxen (NAPROSYN) 500 mg tablet Take 1 tablet (500 mg total) by mouth 2 (two) times a day with meals 30 tablet 02/08/20 25 Active Additional Information Patient not taking.Reported on 06/17/2025 methocarbamoL (ROBAXIN) 500 mg tablet Take 1 tablet (500 mg total) by mouth 2 (two) times a day 20 tablet 02/08/20 25 Active Additional Information Patient not taking.Reported on 06/17/2025 lisinopriL (PRINIVIL,ZEST RIL) 30 mg tablet Take 1 tablet (30 mg total) by mouth daily Med change 90 tablet 1 03/25/20 25 026 Active spironolactone (ALDACTONE) 25 mg tablet Take 1 tablet (25 mg total) by mouth daily 90 tablet 1 03/25/20 25 Active Additional Information Patient not taking.Reported on 06/17/2025 azelastine (ASTELIN) 137 mcg (0.1 %) nasal spray Administer 1 spray into each nostril 2 (two) times a day Use in each nostril as directed 30 mL 3 03/25/20 Active Additional Information Patient not taking.Reported on 06/17/2025 compress.stock ing,knee,reg,l rg misc Use daily as directed 1 each 03/25/20 Active Additional Information Patient not taking.Reported on 06/17/2025 dulaglutide (TRULICITY) 0.75 mg/0.5 mL pen injector Inject 0.5 mL (0.75 mg total) under the skin every 7 days 2 mL 03/26/20 Active Additional Information Patient not taking.Reported on 06/17/2025 ferrous sulfate 325 mg (65 mg of elemental iron) tabletIndicati ons:Iron Deficiency Anemia Take 1 tablet (65 mg of elemental iron total) by mouth daily with breakfast 100 tablet 1 03/26/20 Active senna (SENOKOT) 8.6 mg tablet Take 1 tablet by mouth daily 90 tablet 3 03/26/20 25 026 Active albuterol HFA (PROVENTIL HFA,VENTOLIN HFA,PROAIR HFA) 90 mcg/actuation inhaler INHALE 2 PUFFS BY MOUTH EVERY 4 HOURS NEEDED FOR WHEEZING OR SHORTNESS OF BREATH 9 g 1 06/07/20 25 Active Erlinda 24 Fe 1 mg-20 mcg (24)/75 mg (4) per tablet Take 1 tablet by mouth daily 05/22/20 25 Active ipratropium (ATROVENT) 21 mcg (0.03 %) nasal spray Administer 2 sprays into each nostril 2 (two) times a day 30 mL 11 06/17/20 25 Active albuterol HFA (PROVENTIL HFA,VENTOLIN HFA,PROAIR HFA) 90 mcg/actuation inhaler INHALE 2 PUFFS BY MOUTH EVERY 4 HOURS NEEDED FOR WHEEZING FOR SHORTNESS OF BREATH 9 g 04/28/20 25 025 Discontinued Active Problems Problem Noted Date Diagnosed Date Prediabetes 03/26/2025 Assessment & Plan (03/26/2025 8:53 AM CDT): Will try to get trulicity started for prediabetes if we can get covered by insurance. Lymphedema associated with obesity 03/25/2025 Assessment & Plan (03/25/2025 10:11 AM CDT): Continue spironolactone. I think she would benefit from weight loss. Referral to bariatric surgery Previous section 03/10/2024 Encounter for female sterilization procedure 04/2024 Seasonal allergic rhinitis due to fungal spores 11/16/2023 Assessment & Plan (03/25/2025 10:10 AM CDT): Will try adding Astelin. Continue antihistamines. Assessment & Plan (11/16/2023 9:27 AM PROCESSOR HELPER): History of allergies and allergic rhinitis. She has albuterol inhaler to use p.r.n.. Worsened with . Add Flonase nasal spray. May continue Zyrtec daily Calcaneal spur of foot, left 08/01/2023 Hypertension, essential 03/27/2023 Assessment & Plan (03/25/2025 10:10 AM CDT): Stable/ Improved. Blood pressure is adequately controlled on lisinopril (generic) . Will discontinue the hydrochlorothiazide as this is causing urinary incontinence, but increase lisinopril to 30 mg. Will have her follow-up in 6 months for continued monitoring and management Assessment & Plan (09/25/2024 2:37 PM PROCESSOR HELPER): Stable/ Improved. Blood pressure is adequately controlled on lisinopril (generic) . Will discontinue the hydrochlorothiazide as this is causing urinary incontinence, but increase lisinopril to 30 mg. Will have her follow-up in 6 months for continued monitoring and management Assessment & Plan (06/25/2024 10:47 AM CDT): Will discontinue lisinopril and lasix. Restart lisinopril/hctz 20/25 daily. F/u 3 months for recheck and will recheck bmp at that time Assessment & Plan (05/21/2024 9:36 AM CDT): We will discontinue the labetalol. We will restart lisinopril 20 mg once daily. For this month we will start Lasix 20mg once daily. Add potassium 10 mEq once daily. Will obtain labs today. Will have her follow-up in 1 month for recheck on blood pressure and swelling in her legs. Assessment & Plan (11/16/2023 9:26 AM PROCESSOR HELPER): Stable. Will continue on labetalol 100 mg b.i.d.. Will have her follow-up in 6 months post Assessment & Plan (09/21/2023 11:09 AM PROCESSOR HELPER): Patient was told to discontinue lisinopril in emergency room, was switch to labetalol 100 mg b.i.d.. Assessment & Plan (04/30/2023 9:57 AM CDT): Will discontinue hctz due to c/o's of too much urinary frequency. Concern for continued edema in ankles. Will change to lisiniopril/ hctz 08/16. which I explained to her is half the hctz dose. Will continue to monitor blood pressure. Have her f/u in 3 months. Assessment & Plan (03/27/2023 9:33 PM CDT): Hypertension is newly identified. Dietary sodium restriction. Weight loss. Regular aerobic exercise. Medication changes per orders. Blood pressure will be reassessed in 4 weeks. Lower extremity edema 03/27/2023 Assessment & Plan (09/25/2024 2:39 PM PROCESSOR HELPER): No change in her bilateral lymphedema Assessment & Plan (06/25/2024 10:48 AM CDT): No real changed. Recommend exercise and weight loss. Change diuretics. F/u 3 months with repeat bmp Assessment & Plan (05/21/2024 9:36 AM CDT): Restarting Lasix 20 mg once daily. I did talk to her about salt intake. About salt hidden in foods and additional salt. Assessment & Plan (03/27/2023 9:35 PM CDT): Start hctz 25mg daily. Check bmp in 4 weeks. History of atrial flutter 08/26/2021 Assessment & Plan (03/01/2023 10:18 AM CDT): D/c metoprolol No longer following with cardio No issues at this time Assessment & Plan (10/24/2021 12:36 PM PROCESSOR HELPER): Rate controlled with metoprolol. Continue current medication. Follow up with cardiology as scheduled. Healthcare maintenance 03/08/2021 Assessment & Plan (06/25/2024 10:48 AM CDT): -Recommended: Healthy diet. Avoiding junk food/fast food. -30 minutes of exercise most days of the week. Increase to 45 minutes for weight loss. Health Maintenance reviewed - mammogram is scheduled. -Influenza vaccine every year Recommend: - Topic Date Due Varicella Vaccines (1 of 2 - 13+ 2-dose series) Never done -F/u in 1 year for Annual PE or sooner if needed Assessment & Plan (03/20/2023 1:38 PM CDT): Labs placed for future visit when she returns in 1 week. Patient is overdue for routine labs and physical. Patient may need workup for chronic bronchitis, emphysema Assessment & Plan (03/08/2021 3:14 PM CDT): -Recommended: Healthy diet. Avoiding junk food/fast food. -30 minutes of exercise most days of the week. Increase to 45 minutes for weight loss. Immunizations: Up to date lose weight, increase physical activity, continue present plan, have labs drawn prior to ROV, call if any problems Follow-up in 1 year. Class 3 severe obesity due t o excess calories with serious comorbidity and body mass index (BMI) of 50.0 to 59.9 in adult 03/08/2021 Assessment & Plan (03/25/2025 10:10 AM CDT): BMI Follow-up includes: education provided. Patient has tried diet pills, walking and several diets. Referral to weight loss management, surgical management at [facility] bariatric weight loss program Assessment & Plan (09/25/2024 2:37 PM PROCESSOR HELPER): BMI Follow-up includes: exercise counseling. Assessment & Plan (06/25/2024 10:47 AM CDT): BMI Follow-up includes: exercise counseling. Assessment & Plan (05/21/2024 9:38 AM CDT): BMI is up. She is only 8 weeks . I did talk to her about discontinuing all soda intake. I talked her about discontinuing bread products from her diet. Next step would be discontinuing potato products from her diet. Thus decreasing carbohydrates in her diet. Will rediscuss in 1 month when she returns for annual physical and recheck Assessment & Plan (04/30/2023 10:03 AM CDT): BMI Follow-up includes: exercise counseling. Assessment & Plan (03/01/2023 10:10 AM CDT): Wt Readings from Last 3 Encounters: 03/01/23 125.1 kg (275 lb 14.4 oz) 02/18/23 136.1 kg (300 lb) 04/25/22 (!) 143.3 kg (316 lb) BMI Readings from Last 3 Encounters: 03/01/23 45.91 kg/m 02/18/23 49.92 kg/m 04/25/22 52.59 kg/m Not at goal of bmi <30 Continue diet and exercise BMI Follow-up includes: nutrition counseling and exercise counseling. Assessment & Plan (10/24/2021 12:37 PM PROCESSOR HELPER): BMI Follow-up includes: exercise counseling. Assessment & Plan (03/08/2021 2:06 PM CDT): BMI Follow-up includes: exercise counseling. Chronic bilateral low back pain without sciatica 03/08/2021 Assessment & Plan (03/25/2025 10:10 AM CDT): Has gone to ER for back pain. Had Robaxin to use p.r.n.. Uses naproxen PRN. X- ray shows some chronic arthritic changes Assessment & Plan (09/25/2024 2:39 PM PROCESSOR HELPER): Has had recurrent back pain in the past. Likely due to body habitus and lack of structure exercise. I gave her ibuprofen to take 600 mg daily p.r.n. encouraged exercise and walking Assessment & Plan (03/08/2021 3:15 PM CDT): Continue diclofenac twice daily for anotoher 1-2 weeks. Flexeril prn. Then may discontinue diclofenac and use as needed for back pain. If back pain continues or worsens we discussed ordering physical therapy and or further workup Resolved Problems Problem Noted Date Diagnosed Date Resolved Date Term 04/03/2024 05/21/2024 and not yet deliver ed in second trimester 09/21/2023 05/21/2024 Assessment & Plan (11/16/2023 9:28 AM PROCESSOR HELPER): OBGYN is Dr. Swanson who is supervising Assessment & Plan (09/21/2023 11:09 AM PROCESSOR HELPER): Keep scheduled appointment with digital marketing executive. Will contact our office to see if I can get her appointment moved up from the end of October. Viral upper respiratory tract infection 04/30/2023 09/21/2023 Assessment & Plan (04/30/2023 10:03 AM CDT): URI vs. Allergies. Just started last night. Pt was just on doxycyline last month. I told her to restart nasal sprays and allergy medication. Call if symptoms continue over 7 days or she has turn day or wheezing. Acute maxillary sinusitis 02/18/2023 Acute bronchitis 02/18/2023 11/16/2023 Assessment & Plan (09/21/2023 11:08 AM PROCESSOR HELPER): Clinically improving, continue current medication albuterol. Assessment & Plan (03/27/2023 9:30 PM CDT): Much improved/ resolving. Finish prednisone and doxy. Assessment & Plan (03/20/2023 1:37 PM CDT): Previous smoker quit 6 months ago. We are going to treat for acute bronchitis with prednisone taper, doxycycline and albuterol inhaler. I would like her to follow- up in 1 week for recheck. Supervision of normal 03/29/2022 03/01/2023 Overview (04/25/2022): Added automatically from request for surgery [id number] with uncertain skip es in first trimester 10/24/2021 03/01/2023 Assessment & Plan (10/24/2021 12:41 PM PROCESSOR HELPER): Patient should be close to 2nd trimester, but uncertain of dates at this point. She has f/u with Dr. Swanson of [facility] Nov.08. Has had confirmed in office with urine preg. In September. She has had no bleeding. No complications at this point. Recommended starting a vitamin. Legionella pneumonia 08/26/2021 021 Pyelonephritis 08/23/2021 10/24/2021 Assessment & Plan (08/23/2021 3:09 PM CDT): Due to fever, protein and large amounts of blood in urine and lack of improvement on macrobid, after discussing with Dr. Ramon, recommended patient return to ER for further workup. Pneumonia of right lower lob e due to infectious organism 08/23/2021 10/24/2021 Encounters Date Type Department Care Team Description 06/24/2025 Telephone [facility] Medicine Scheduling [address] [place] [address] Won, Harika Rice MD Prior Auth (ipratropium (ATROVENT) 21 mcg (0.03 %) nasal spray) 06/19/2025 Telephone [facility] Primary Care at [address] [phone] Shari Ba NP Medication Request 06/17/2025 2:00 PM CDT Office Visit [facility] [address] [place] [address] [phone] Harika Upton MD Non-allergic rhinitis (Primary Dx) 06/16/2025 Telephone [facility] [address] [place] [address] [phone] Cem Acuna MD PhD 04/15/2025 Orders Only [facility] at [address] [phone] Shari Ba NP Seasonal allergic rhinitis due to fungal spores (Primary Dx) 04/15/2025 Telephone [facility] at [address] [phone] Shari Ba NP Recommendation Request 04/05/2025 Results Follow-Up [facility] at [address] [phone] Shari Ba NP Diagnostic Mammogram Bilateral W Sixto 04/02/2025 10:18 AM CDT - 04/02/2025 11:59 PM CDT Hospital Encounter [address] [address] Abnormal mammogram Discharge Disposition: Discharge to home or self care 04/02/2025 10:18 AM CDT - 04/02/2025 11:59 PM CDT Hospital Encounter [address] [address] Abnormal mammogram Discharge Disposition: Discharge to home or self care 03/31/2025 Telephone [facility] at [address] [phone] Shari Ba NP Medication Request 03/26/2025 Telephone [facility] at [address] [phone] Shari Ba NP Prior Auth (turlicity) 03/26/2025 Results Follow-Up [facility] at [address] [phone] Shari Ba NP Total testosterone, Vitamin D 25 hydroxy, Hemoglobin A1c, Additional followed-up results: 6 03/25/2025 10:01 AM CDT - 03/25/2025 11:59 PM CD[place] [address] Insulin resistance syndrome; Vitamin D deficiency; Diabetes mellitus screening; Thyroid disorder screen; Lipid screening; Hypertension, essential Discharge Disposition: Discharge to home or self care 03/25/2025 10:00 AM CDT Lab [facility] Lab at [address] [phone] 03/25/2025 9:30 AM CDT Office Visit [facility] at [address] [phone] Shari Ba NP Hypertension, essential (Primary Dx); Seasonal allergic rhinitis due to fungal spores; Diabetes mellitus screening; Thyroid disorder screen; Lipid screening; Class 3 severe obesity due to excess calories with serious comorbidity and body mass index (BMI) of 50.0 to 59.9 in adult; Chronic bilateral low back pain without sciatica; Lower extremity edema; Vitamin D deficiency; Insulin resistance syndrome; Lymphedema associated with obesity from Last 3 Months Immunizations Immunization Administration Dates Next Due Influenza, Quadrivalent, Spl it, Preservative Free, Intramuscular 11/16/2023,07/27/2015 Influenza, Unspecified 06/25/2024(Deferr ed: Patient Refused),09/21/2023(Deferred: Patient Refused),02/02/2023(Deferred: Patient Refused),10/24/2021(Deferred: Patient Refused),08/05/2020(Deferred: Patient Refused) Pfizer SARS-CoV-2 Monovalent Vaccination (12+ Yrs) PURPLE 12/08/2020,11/17/2020 Tdap 03/23/2022 Medical History Medical History Date Comments pt currently pre gnant Atrial flutter (HCC) 08/26/2021 Legionella pneumonia (HCC) 08/26/2021 Pneumonia of right lower lob e due to infectious organism 08/23/2021 Urinary tract infection Hypertension Atrial fibrillation, current ly in sinus rhythm 08/2021 pt states Afib - Lopressor f or 2-3 months, Cut back caffeine - No A-fib since Family History Medical History Relation Name Comments Cancer Father Lung cancer Father Breast cancer Maternal cousin Diabetes Mother Heart attack Mother Stroke Mother Breast cancer Paternal Grandmother Ovarian cancer Neg Hx Thyroid cancer Neg Hx Relation Name Status Comments Father Maternal cousin Mother Alive Paternal Grandmother Sister (Age 47) Social History Tobacco Use Types Packs/Day Years Used Date Smoking Tobacco: Former Cigarettes 0.8 22.7 1 999 - 08/2021 Smokeless Tobacco: Never Tobacco Cessation:Counseling Given: Not Answered Comments:asked if pt ready to quit, answer was a very weak yeah [...] week 03/28/2024 How often do you attend [facility] or sabian[facility] services? 1 to 4 times per year 03/28/2024 Do you belong to any clubs o r organizations such as rastafarian groups, unions, fraternal or athletic groups, or [...] staff should administer the PHQ-9) 2 03/25/2025 [facility] - Occupational Stress Questionnaire Answer Date [...] any time in the past 12 m [facility], were you homeless or living in a long-term (including now)? No 03/28/2024 AUDIT-C Answer Date [...] on file Legal Sex Female 10:03 AM PROCESSOR HELPER Gender Identity Not on file Sexual Orientation Not on file Obstetrics History Para Term AB IAB SAB Ectopic Multiple Livin g Live Births 4 4 4 0 4 3 Date Outcome GA Total Labor Labor/2nd/3rd Weight Sex Type Anes PTL Alayna A1 A5 Name Clin 2009 Term M Vag-S pont None Complications: Hemalatha zuhair Hypertension Delivery Location:[facility] 6 Term M Vag-S pont Epidur al Livin g Liang Osullivan MD Delivery Location:[facility] 2021 Term 39w 6d 6h 13m 0h 39m/5h 33m/0h 01m 3.507 kg (7 lb 11.7 oz) F CS-LT ranv Epidur al N Livin g 3 6 [facility] Liang Osullivan MD Complications:Failure to Pro george in Second Stage Delivery Location:[facility] ([facility] L AND D PROCEDURE) 2023 Term 37w 1d 0h 01m 0h 01m 3.208 kg (7 lb 1.2 oz) M C-Sec tion Spinal N Livin g 7 8 [facility] Complications:Placenta Previ a Delivery Location:[facility] ([facility] L AND D PROCEDURE) Last Filed Vital Signs Vital Sign Reading Time Taken Comments Blood Pressure 121/78 06/17/2025 2:07 PM CDT Pulse 116 06/17/2025 2:07 PM CDT Temperature 36.8 C (98.2 F) 06/17/2025 2:07 PM CDT Respiratory Rate 18 06/17/2025 2:07 PM CDT Oxygen Saturation 93% 06/17/2025 2:07 PM CDT Inhaled Oxygen Concentration - - Weight 151 kg (333 lb) 06/17/2025 2:07 PM CDT Height 165.1 cm (5' 5) 06/17/2025 2:07 PM CDT Body Mass Index 55.41 06/17/2025 2:07 PM CDT Plan of Treatment Health Maintenance Due Date Last Done Comments Cervical Cancer Screening 1983 Varicella Vaccines (1 of 2 - 13+ 2-dose series) 1996 Hepatitis B Screening 2001 HPV Vaccines (1 - 3-dose SCDM series) 2010 Regular Well Visit/Exam 18-64 03/08/2022 03/08/2021 Covid-19 Vaccine (3 - season) 2024 12/08/2020, 11/17/2020 Influenza Vaccine (#1) 2025 11/16/2023, 2014 Depression Screening 03/25/2026 03/25/2025, 09/25/2024, 06/25/2024, Additional history exists Breast Cancer Screening-Mammogram 04/02/2026 04/02/2025, 09/12/2024, 07/18/2024 DTaP/Tdap/Td Vaccine (2 - Td or Tdap) 03/23/2032 03/23/2022 Hepatitis C Screening Completed 06/25/2024 Pneumococcal vaccine <65 Aged Out No longer eligible based on patient's age to complete this topic Procedures Procedure Name Priority Date/Time Associated Diagnosis Comments AMB REFERRAL TO ALLERGY Routine 06/17/2025 2:05 PM CDT Non-allergic rhinitis US BREAST BILATERAL COMPLETE Schedule Routine, Read Routine (OP Routine) 04/02/2025 11:58 AM CDT Abnormal mammogram DIAGNOSTIC MAMMOGRAM BILATERAL W SIXTO Schedule Routine, Read Routine (OP Routine) 04/02/2025 10:46 AM CDT Abnormal mammogram EGFR Routine 03/25/2025 10:01 AM CDT Hypertension, essential DIFFERENTIAL AUTO Routine 03/25/2025 10: 01 AM CDT Hypertension, essential CBC WITH AUTO DIFFERENTIAL Routine 03/25/2025 10:01 AM CDT Hypertension, essential COMPREHENSIVE METABOLIC PANEL Routine 03/25/2025 10:01 AM CDT Hypertension, essential LIPID PANEL Routine 03/25/2025 10:01 AM CDT Lipid screening THYROID FUNCTION CASCADE Routine 03/25/2025 10:01 AM CDT Thyroid disorder screen HEMOGLOBIN A1C Routine 03/25/2025 10:01 AM CDT Diabetes mellitus screening VITAMIN D 25 HYDROXY Routine 03/25/2025 10:01 AM CDT Vitamin D deficiency INSULIN, TOTAL Routine 03/25/2025 10:01 AM CDT Insulin resistance syndrome TOTAL TESTOSTERONE Routine 03/25/2025 10 :01 AM CDT Insulin resistance syndrome HEPATITIS C ANTIBODY Routine 06/25/2024 11:03 AM CDT Encounter for hepatitis C screening test for low risk patient from Last 3 Months or Most Recently Relevant to Health Maintenance Results * Ambulatory referral to Allergy (06/17/2025 2:05 PM CDT) Shari Ba NP OUTPATIENT REFERRAL ORDERABLE S Final Result * US Breast Bilateral Complete (04/02/2025 11:58 AM CDT) Anatomical Region Laterality Modality Breast Bilateral Ultrasound 04/02/2025 5:37 PM CDT Impressions 04/02/2025 5:37 PM CDT Ducts containing debris, some of which is fatty. These are benign findings. No imaging findings to suggest malignancy are seen. The patient may return to screening mammography as per ACR guidelines. OVERALL FINAL ASSESSMENT: [id number] Electronically signed by: Christelle Waggoner M.D. Narrative 04/02/2025 5:37 PM CDT EXAMINATION: BILATERAL DIGITAL DIAGNOSTIC MAMMOGRAM AND DIGITAL BREAST TOMOSYNTHESIS; BILATERAL BREAST SONOGRAM HISTORY: Follow-up COMPARISON: Studies dating back to 07/18/2024 TECHNIQUE: Full field digital mammographic views of the bilateral breast(s) were performed, including computer aided detection (CAD) and digital breast tomosynthesis (DBT). Directed ultrasound evaluation of the bilateral breast(s) was performed. BREAST PARENCHYMAL COMPOSITION: There are scattered areas of fibroglandular density. MAMMOGRAM FINDINGS: An asymmetry previously questioned in the lateral left breast is less prominent and thought to represent just some fibroglandular tissue. Tubular structures and focal asymmetries with convex margins are again noted. Some contain lucency. There are no new masses. No suspicious calcifications are seen. There is no unexplained architectural distortion. There is no skin thickening seen. There are no mammographically abnormal lymph nodes seen in the axillae or elsewhere. ULTRASOUND FINDINGS: Sonography was performed through the retroareolar regions on both sides. There is bilateral ductal ectasia. The dilated ducts containing debris. Some are focally dilated, accounting for focal asymmetries with convex contours. No definite intraductal mass is seen. us Shari Ba NP IMG MAMMO PROCEDURES Final Re sult * Diagnostic Mammogram Bilateral W Sixto (04/02/2025 10:46 AM CDT) Anatomical Region Laterality Modality Breast Bilateral Mammography 04/02/2025 5:37 PM CDT Impressions 04/02/2025 5:37 PM CDT Ducts containing debris, some of which is fatty. These are benign findings. No imaging findings to suggest malignancy are seen. The patient may return to screening mammography as per ACR guidelines. OVERALL FINAL ASSESSMENT: [id number] Electronically signed by: Christelle Waggoner M.D. Narrative 04/02/2025 5:37 PM CDT EXAMINATION: BILATERAL DIGITAL DIAGNOSTIC MAMMOGRAM AND DIGITAL BREAST TOMOSYNTHESIS; BILATERAL BREAST SONOGRAM HISTORY: Follow-up COMPARISON: Studies dating back to 07/18/2024 TECHNIQUE: Full field digital mammographic views of the bilateral breast(s) were performed, including computer aided detection (CAD) and digital breast tomosynthesis (DBT). Directed ultrasound evaluation of the bilateral breast(s) was performed. BREAST PARENCHYMAL COMPOSITION: There are scattered areas of fibroglandular density. MAMMOGRAM FINDINGS: An asymmetry previously questioned in the lateral left breast is less prominent and thought to represent just some fibroglandular tissue. Tubular structures and focal asymmetries with convex margins are again noted. Some contain lucency. There are no new masses. No suspicious calcifications are seen. There is no unexplained architectural distortion. There is no skin thickening seen. There are no mammographically abnormal lymph nodes seen in the axillae or elsewhere. ULTRASOUND FINDINGS: Sonography was performed through the retroareolar regions on both sides. There is bilateral ductal ectasia. The dilated ducts containing debris. Some are focally dilated, accounting for focal asymmetries with convex contours. No definite intraductal mass is seen. Shari Ba NP IMG MAMMO PROCEDURES Final Re sult * eGFR (03/25/2025 10:01 AM CDT) eGFR >90 >=60 mL/min/1. 73 m2 Comment: Interpretive Data Reference Interval Normal >/= 90 mL/min/1.73m2 Mildly decreased* 60 - 89 mL/min/1.73m2 Mildly to moderately decreased 45 - 59 mL/min/1.73m2 Moderately to severely decreased 30 - 44 mL/min/1.73m2 Severely decreased 15 - 29 mL/min/1.73m2 Kidney Failure < 15 mL/min/1.73m2 *Relative to young adult level Estimated glomerular filtration rate is determined by the 2020 CKD-EPI equation recommended by the National Kidney Foundation (A Unifying Approach to GFR Estimation: Recommendations of the NKF-ASK Task Force on Reassessing the Inclusion of Race in Diagnosing Kidney Disease, JASN 202). The CKD-EPI equation should not be used for patients with unstable renal function and has not been validated in children and those over 70. Current interpretive data was last reviewed 2021. Blood 03/25/2025 10:0 1 AM CDT 03/25/2025 4:31 PM CDT Shari Ba NP LAB BLOOD ORDERABLES Final Re sult [place] [id number] [address] [place] [address] * (ABNORMAL) Differential, auto (03/25/2025 10:01 AM CDT) Neutrophil abs 8.07(H) 1.50 - 6.50 K/cumm Imm gran abs 0.11(H) 0.00 - 0.10 K/cumm [facility] Lymphocyte abs 1.61 0.80 - 3.30 K/cumm [facility] Monocyte abs 0.98(H) 0.20 - 0.80 K/cumm [facility] Eosinophil abs 0.71(H) 0.00 - 0.50 K/cumm [facility] Basophil abs 0.05 0.00 - 0.10 K/cumm [facility] Neutrophil pct 69.9 % [facility] Comment: Interpretive Data Percent cell count reference ranges are not reported, since discordance with absolute values may lead to misinterpretation of CBC data. Current Interpretive Data was last revised on 2018. Imm gran pct 1.0 % [facility] Comment: Interpretive Data Percent cell count reference ranges are not reported, since discordance with absolute values may lead to misinterpretation of CBC data. Current Interpretive Data was last revised on 2018. Lymphocyte pct 14.0 % [facility] Comment: Interpretive Data Percent cell count reference ranges are not reported, since discordance with absolute values may lead to misinterpretation of CBC data. Current Interpretive Data was last revised on 2018. Monocyte pct 8.5 % [facility] Comment: Interpretive Data Percent cell count reference ranges are not reported, since discordance with absolute values may lead to misinterpretation of CBC data. Current Interpretive Data was last revised on 2018. Eosinophil pct 6.2 % [facility] Comment: Interpretive Data Percent cell count reference ranges are not reported, since discordance with absolute values may lead to misinterpretation of CBC data. Current Interpretive Data was last revised on 2018. Basophil pct 0.4 % [facility] Comment: Interpretive Data Percent cell count reference ranges are not reported, since discordance with absolute values may lead to misinterpretation of CBC data. Current Interpretive Data was last revised on 2018. Blood 03/25/2025 10:0 1 AM CDT 03/25/2025 3:51 PM CDT Shari Ba [employer] LAB BLOOD ORDERABLES Final Re sult [place] [id number] [facility] [place] [address] * Thyroid Function [place] (03/25/2025 10:01 AM CDT) Pathologist [facility] TSH 1.14 0.30 - 4.20 mcIUnit/mL Blood 03/25/2025 10:0 1 AM CDT 03/25/2025 3:51 PM CDT Shari Ba [employer] LAB BLOOD ORDERABLES Final Re sult Performing Organization Address City/[facility] Co de Phone Number KING [address] [facility] [place] [address] * (ABNORMAL) CBC with auto differential (03/25/2025 10:01 AM CDT) Pathologist [facility] WBC 11.53(H) 3.80 - 9.90 K/cumm Hgb 10.6(L) 11.9 - 15.5 g/dL [facility] Hct 38.7 35.6 - 45.5 % [facility] Plt 360 150 - 400 K/cumm [facility] MPV 10.5 9.1 - 12.3 fL [facility] RBC 5.00 3.90 - 5.20 M/cumm [facility] MCV 77.4(L) 81.3 - 96.4 fL [facility] MCH 21.2(L) 27.1 - 33.3 pg [facility] MCHC 27.4(L) 32.3 - 35.7 g/dL [facility] CH RDW CV 18.0(H) 11.1 - 14.9 % [facility] RDW SD 49.6(H) 35.7 - 48.1 fL [facility] CH NRBC abs 0.00 0.00 - 0.01 K/cumm [facility] Blood 03/25/2025 10:0 1 AM CDT 03/25/2025 3:51 PM CDT Shari Ba NP LAB BLOOD ORDERABLES Final Re sult [place] [id number] [address] [facility] [place] [address] * (ABNORMAL) Vitamin D 25 hydroxy (03/25/2025 10:01 AM CDT) Vitamin D 25-OH 17(L) 30 - 80 ng/mL Blood 03/25/2025 10:0 1 AM CDT 03/25/2025 3:51 PM CDT Shari Ba NP LAB BLOOD ORDERABLES Final Re sult Performing Organization Address [facility] Co de Phone Number K[place] HERNAN[place]Z [id number] [address] [facility] [place] [address] * (ABNORMAL) Insulin, total (03/25/2025 10:01 AM CDT) Insulin 35.7(H) 2.6 - 25.0 mcIUnit/mL Comment:Testing performed by : [facility], [address] [place]., [address] Blood 03/25/2025 10:0 1 AM CDT 03/26/2025 10:02 AM CDT Shari Ba NP LAB BLOOD ORDERABLES Final Re sult Performing Organization Address [facility] Co de Phone Number KING HERNANDEZ [phone] [address] Department [place] [facility] [place] [address] * Total testosterone (03/25/2025 10:01 AM CDT) Testosterone 27 8 - 48 ng/dL Blood 03/25/2025 10:0 1 AM CDT 03/25/2025 3:51 PM CDT Shari Ba NP LAB BLOOD ORDERABLES Final Re sult [place] [address] [address] [place] [address] * (ABNORMAL) Hemoglobin A1c (03/25/2025 10:01 AM CDT) Hgb A1C 6.1(H) 4.0 - 5.6 % Estimated Average Glucose 128 mg/dL K[facility] HERNANDEZ Comment: The ADA recommends reporting an estimated Average Glucose (eAG) with all Hemoglobin A1c results using the equation derived from a study of 507 normal and diabetic adults. Minority populations were underrepresented and children were not included. (Diabetes Care 31:4350-7655, 2008). The eAG is not equivalent to a fasting glucose. Blood 03/25/2025 10:0 1 AM CDT 03/25/2025 3:51 PM CDT Shari Ba NP LAB BLOOD ORDERABLES Final Re sul Performing Organization Address [facility] de Phone Number KING [phone] [address] [employer] [address] * (ABNORMAL) Lipid panel (03/25/2025 10:01 AM CDT) Cholesterol 135 30 - 199 mg/dL Comment: Interpretive Data Ages < or = 19 years Acceptable: <170 mg/dL Borderline high: 170-199 mg/dL High: >or= 200 mg/dL Ages > or = 20 years Desirable: <200 mg/dL Borderline high: 200-239 mg/dL High: >or= 240 mg/dL Literature References: 1. Expert Panel on Integrated Guidelines for Cardiovascular Health and Risk Reduction in Children and Adolescents. Pediatrics 2011;128:S213 2. NCEP Expert Panel. Circulation 2004;110:227 Current Interpretive Data was last revised on 2018. Triglycerides 62 <=149 mg/dL [facility] HERNANDEZ Comment: Interpretive Data Ages < or = 9 years Acceptable: <75 mg/dL Borderline high: 75-99 mg/dL High: >or= 100 mg/dL Ages 10 to 20 years Acceptable: <90 mg/dL Borderline high: 90-129 mg/dL High: >or= 130 mg/dL Ages > or = 20 years Desirable: <150 mg/dL Borderline high: 150-199 mg/dL High: 200-499 mg/dL Very high: >or= 499 mg/dL Literature References: 1. Expert Panel on Integrated Guidelines for Cardiovascular Health and Risk Reduction in Children and Adolescents. Pediatrics 2011;128:S213 2. NCEP Expert Panel. Circulation 2004;110:227 Current Interpretive Data was last revised on 2018. HDL 39(L) >=40 mg/dL [facility] HERNANDEZ Comment: Interpretive Data Ages < or = 19 years Acceptable: >45 mg/dL Borderline low: 40-45 mg/dL Low: <40 mg/dL Ages > or = 20 years Desirable: >or= 60 mg/dL Low: <40 mg/dL Literature References: 1. Expert Panel on Integrated Guidelines for Cardiovascular Health and Risk Reduction in Children and Adolescents. Pediatrics 2011;128:S213 2. NCEP Expert Panel. Circulation 2004;110:227 Current Interpretive Data was last revised on 2018. LDL, calculated 83 <=129 mg/dL KING Comment: Interpretive Data Ages < or = 19 years Acceptable: <110 mg/dL Borderline high: 110-129 mg/dL High: >or= 130 mg/dL Ages > or = 20 years Optimal: <100 mg/dL Near optimal: 100-129 mg/dL Borderline high: 130-159 mg/dL High: >160 mg/dL Calculated using the Kevin LDL-C estimating equation. This equation was implemented on 2024. Prior to this date LDL-C was estimated using the Friedewald equation. Literature References: 1. Expert Panel on Integrated Guidelines for Cardiovascular Health and Risk Reduction in Children and Adolescents. Pediatrics 2011;128:S213 2. NCEP Expert Panel. Circulation 2004;110:227 3. Kevin Coe et al. RICK Cardiol. 2020 March 05;5(5):540-548. doi: 10.1001/[email or web address].2020.0013 Current Interpretive Data was last revised on 2024. Non-HDL Cholesterol 96 mg/dL [facility] HERNANDEZ Comment: Interpretive Data Ages < or = 19 years Acceptable: <120 mg/dL Borderline high: 120-144 mg/dL High: >145 mg/dL Ages > or = 20 years When triglycerides are >200 mg/dL, Non-HDL cholesterol is a secondary target of therapy with treatment goals that are 30 mg/dL greater than the LDL cholesterol target. Literature References: 1. Expert Panel on Integrated Guidelines for Cardiovascular Health and Risk Reduction in Children and Adolescents. Pediatrics 2011;128:S213 2. NCEP Expert Panel. Circulation 2004;110:227 Current Interpretive Data was last revised on 2018. Chol/HDL ratio 3 [facility] Blood 03/25/2025 10:0 1 AM CDT 03/25/2025 3:51 PM CDT Shari Ba NP LAB [place]LO[place] [id number] [address] [place] [address] * Comprehensive metabolic panel (03/25/2025 10:01 AM CDT) Sodium 136 135 - 145 mmol/L Potassium, pl 4.5 3.3 - 4.9 mmol/L [facility] Chloride 101 97 - 110 mmol/L [facility] CO2 26 22 - 32 mmol/L [facility] Anion gap 9 2 - 15 mmol/L [facility] BUN 11 6 - 25 mg/dL [facility] Creatinine 0.63 0.60 - 1.10 mg/dL [facility] Glucose 80 70 - 199 mg/dL [facility] Comment: Interpretive Data Fasting glucose >/= 126 mg/dl is diagnostic for diabetes. Fasting is defined as no caloric intake for at least 8 hours. Fasting glucose between 100 mg/dl to 125 mg/dl is diagnostic of prediabetes. In a patient with classic symptoms of hyperglycemia or hyperglycemic crisis, a random glucose >/= 200 mg/dl is diagnostic for diabetes. In the absence of unequivocal hyperglycemia, results should be confirmed by repeat testing. The classification and Diagnosis of Diabetes Diabetes Care 202; 46: S19-S40. Current interpretive data was last revised 2022. Calcium 9.0 8.5 - 10.3 mg/dL [facility] Bilirubin, total 0.2 0.1 - 1.2 mg/dL [facility] Protein, pl 7.4 6.5 - 8.5 g/dL [facility] Albumin 3.9 3.5 - 5.0 g/dL [facility] Alk phos 82 40 - 130 Units/L [facility] ALT 15 7 - 45 Units/L [facility] AST 26 10 - 45 Units/L [facility] Blood 03/25/2025 10:0 1 AM CDT 03/25/2025 3:51 PM CDT Shari Ba NP LAB BLOOD ORDERABLES Final Re sult Performing Organization Address [facility] Co de Phone Number K[place] [phone] [address] Department [employer] [place], [place] [id number] * Hepatitis C antibody Blood (06/25/2024 11:03 AM CDT) Hep C Ab Nonreactive Nonreactive Comment: Interpretive Data Nonreactive: Antibodies to HCV not detected. Does NOT exclude the possibility of recent exposure to HCV. Equivocal: Equivocal for HCV antibodies. Supplemental molecular testing will be automatically performed to determine infection status in accordance with current CDC screening recommendations. Reactive: Positive for HCV antibodies. This may represent current or past HCV infection. Supplemental molecular testing will be automatically performed to determine current infection status in accordance with current CDC screening recommendations. Interpretive data was last revised on 2020. Blood 06/25/2024 11:0 3 AM CDT 06/25/2024 1:43 PM CDT Shari Ba NP LAB MICROBIOLOGY - GENERAL OR DERABLES Final Result Performing Organization Address [facility] Co de Phone Number KING HERNAN[place]Z [phone] [address] Department [employer] [address] from Last 3 Months or Most Recently Relevant to Health Maintenance Insurance [facility] Advance Directives For more information, please contact: [phone] * Full Code (Latest Code Status on File) Date Activated Date Inactivated Comments 04/03/2024 1:52 PM 04/05/2024 8:37 PM * Full Code Date Activated Date Inactivated Comments 04/03/2024 10:15 AM 04/03/2024 1:52 PM Full CPR in case of cardiopulmonary arrest * Full Code Date Activated Date Inactivated Comments 04/25/2022 7:42 PM 04/28/2022 8:33 PM * Full Code Date Activated Date Inactivated Comments 04/24/2022 6:42 PM 04/25/2022 7:42 PM Full CPR in case of cardiopulmonary arrest * Full Code Date Activated Date Inactivated Comments 08/23/2021 10:02 PM 08/27/2021 3:53 PM Care Teams Accounts Receivable Processor Relationship Specialty Start Date End Date Shari Ba NP [id number] [address] PCP - General Family Medicine 04/15/25 Go Maurer MD Consulting Physician Cardiovascular Disease 08/27/21
--- NOTE | 2025-06-24 16:29 | ED_ITS ---
HPI - Dental/Oral General Chief complaint: Dental/Oral Stated complaint: left facial pain History of Present Illness HPI Narrative: patient is a 40-year-old female, past medical history significant for hypertension and anemia, presents to [facility] with 2 week history of progressively worsening dental pain to the upper and lower teeth on the left side. Over the past 2 days, pain has become unbearable. She took a dose of Tylenol early this morning, no additional medications have been attempted today. She states she has been attempting to contact her dentist but has been unable to get in for an appointment. She denies sublingual swelling, throat tongue or lip swelling. She states pain is starting to radiate to her ear. She has not had fever. She denies any additional associated symptoms modifying factors. She is not . Related Data Home Medications ?Medication ?Instructions ?Recorded ?Confirmed ?Last Taken ?Type albuterol sulfate 90 mcg/actuation inhalation 06/24/25 Unknown History aerosol inhaler ferrous sulfate 325 mg (65 mg mg 06/24/25 Unknown His tory iron) tablet (FeroSul) lisinopril 30 mg tablet mg 06/24/25 Unknown History norethindrone 1 mg-ethinyl tablet 06/24/25 Unknown Hi story estradiol 20 mcg (24)-iron 75 mg (4) tablet (Erlinda 24 Fe) spironolactone 25 mg tablet mg 06/24/25 Unknown Histo ry Allergies Allergy/AdvReac Type Severity Reaction Status Date / Time No Known Allergies Allergy Verified 06/24/25 16:26 Review of Systems 2 ENT: Reports as per [facility] Past Medical History Medical History Environmental allergies Surgical History Surgical History No pertinent past surgical history Family History Family History Mother Family history non-contributory Social History Social History Smoking status: Former smoker Substance use: never Living arrangements: with family Gender identity (if verbalized by the patient): Female Sexual Orientation (if Verbalized by the Patient): Straight or Heterosexual Spiritual care concerns: No Exam 2 Const: General: cooperative, healthy appearing, well developed and alert N utritional Appearance: obese morbidly obese Orientation/consciousness: p atient oriented x3 Limitations: no limitations HENMT: Head: normal to inspection Ears: hearing grossly normal bilaterally, external ears normal and other ( Patient has a serous patent TMs bilaterally) Face/Nose/Sinus: Normal external nose present, Normal nares present, No nasal polyps present, Normal nasal mucous membranes and turbinates present, Normal septum present, No nasal discharge present and Abnormal external nose present Mouth: Yes Normal oral and palatal mucosa present, Yes lip normal, Yes tongue normal, Yes Normal salivary glands and ducts present and Yes oropharynx normal Teeth image: 1. gross decay, percussive tender 2. gross decay, percussive tenderness 3. gross decay, percussive tenderness 4. gross decay, percussive tenderness 5. gross decay, percussive tenderness 6. gross decay, percussive tenderness Other: patient has diffuse dental decay, percussive tenderness noted to the affected teeth as marked. Mild gingival erythema noted, no fluctuant abscess, no sublingual swelling or elevation of the sublingual floor. No trismus Eyes: Eyelids: eyelids normal Conjunctivae: conjunctivae normal Cornea: corneas normal EOM: EOMs intact bilaterally Neck: Neck: normal visual inspection, full ROM, no lymphadenopathy, no meningeal signs, trachea midline and supple Resp: Effort & Inspection: normal respiratory effort and able to speak in complete sentences Auscultation: clear to auscultation bilaterally Cardio: Rate: regular rate Rhythm: regular rhythm Heart sounds: S1 normal heart sound present and S2 normal heart sound present Back/Spine/Pelvis: Back: no CVA tenderness Skin: General skin exam: normal color Lesions: no lesions Rashes: no rashes Trauma: no lacerations or abrasions Wounds: no wounds Neuro: General: oriented to person, oriented to place, oriented to time, patient oriented x3 and gait normal Cranial nerves: Yes CN's II-XII intact bilaterally Extrem: General: normal to inspection and full ROM Course Course Emergency Course: plan to treat with Augmentin, b.i.d. for 10 days. Dental follow-up was stressed. Patient is encouraged to alternate Tylenol ibuprofen as directed [id number] for pain relief. ER if facial edema or fevers arise. Patient is agreeable plan Level of Care: Express Care Visit ([id number]) Vital Signs Vital signs: Vital Signs Temperature 36.4 C 06/24/25 16:21 Pulse Rate 86 06/24/25 16:21 Respiratory Rate 20 06/24/25 16:21 Blood Pressure 148/88 H 06/24/25 16:21 Pulse Oximetry 98 06/24/25 16:21 Oxygen Delivery Room Air 06/24/25 16:21 Temperature 36.4 C 06/24/25 16:21 Pulse Rate 86 06/24/25 16:21 Respiratory Rate 20 06/24/25 16:21 Blood Pressure 148/88 H 06/24/25 16:21 Pulse Oximetry 98 06/24/25 16:21 Oxygen Delivery Room Air 06/24/25 16:21 MDM - Dental/Oral MDM Narrative Medical decision making narrative: differential diagnoses include:dental caries, dental abscess, otitis media . Plan to treat with Augmentin b.i.d. for 10 days and dental follow-up Differential Diagnosis Differential diagnosis: Likely gingival abscess, dental caries, toothache, dental abscess and other ( otitis media) Discharge Plan Discharge Clinical Impression: Dental decay, Atypical face pain Patient Disposition: Home Condition: Stable Instructions: Antibiotic Form, Toothache (ED) Additional Instructions: START AND COMPLETE ORAL ANTIBIOTICS DIRECTED. ALTERNATE TYLENOL AND IBUPROFEN DIRECTED [id number] FOR PAIN RELIEF. FOLLOW UP WITH THE DENTIST PLANNED. PROCEED TO THE ER IF YOU DEVELOP FEVERS, FACIAL SWELLING OR WITH ANY CONCERNS OR CONDITION IS WORSENING Patient Language: Lao Prescriptions: New amoxicillin-pot clavulanate 875-125 mg tablet 1 tablet PO Q12H Qty: 20 0RF No Action spironolactone 25 mg tablet ferrous sulfate [FeroSul] 325 mg (65 mg iron) tablet lisinopril 30 mg tablet albuterol sulfate 90 mcg/actuation HFA aerosol inhaler INHALATION Erlinda 24 Fe 1 mg-20 mcg (24)/75 mg (4) tablet Follow-up/Referrals: Mejia,BUD Luna [Primary Care Provider, Unknown] Stand Alone Forms: Work/School Release IP Time of Disposition: 16:37
== END 2025-06-24 16:43 | disposition home or self-care (01) ==
PROVIDERS: Emergency Provider Nurse Practitioner Family; PCP Nurse Practitioner Family
DX: K02.9 Dental caries, unspecified (principal); Z87.891 Personal history of nicotine dependence
CPT/HCPCS: 99213; G0463